=== PATIENT | male | born 1980 | race Two or more races ===

== ENCOUNTER 2016-11-21 11:18 | Inpatient (IN) | payer OTHER ==
[2016-11-21 11:29] VITALS: BMI 24.6
--- NOTE | 2016-11-21 13:35 | HP ---
[id number] 4d 4-Moderate,w/Arms Extend Anxiety: 4-Mod. Anxious/Guarded Agitation: 1-Slight > Activity Paroxysmal Sweats: 1-Minimal Palms Moist Orientation: 1-Uncertain about Date Tacttile Disturbances: 1-Very Mild Itch/Numbness Auditory Disturbances: 2-Mild Harshness/Frighten Visual Disturbances: 2-Mild Sensitivity Headache: 3-Moderate CIWA-Ar Total Score: 20 Admission ROS BHS - HPI Chief Complaint: I want to stop drinking, I drink until I pass out Allergies/Adverse Reactions: Allergies Allergy/AdvReac Type Severity Reaction Status Date / Time Fish Containing Products Allergy Severe Rash Verified 11/21/16 14:03 No Known Drug Allergies Allergy Verified 11/21/16 14:03 History of Present Illness: 35 yo gentleman here for detox from alcohol, states alcohol related black outs, no seizures. Also using heroin and cocaine but on methadone program at [facility] in the city (brought in bottle, was dosed today). Psych history - off meds for nearly a year. Last detox here in August 2016. Exam Limitations: Clinical Condition - Ebola screening Have you traveled outside of the country in the last 21 days: No Have you had contact with anyone from an Ebola affected area: No Have you been sick,other than usual withdrawal symptoms: No Do you have a fever: No - Review of Systems Constitutional: Loss of Appetite, Malaise, Changes in sleep, Weakness EENT: reports: No Symptoms Reported, Dental Problems, Other (loose bridge right upper teeth) Respiratory: reports: Cough Cardiac: reports: Chest Tightness GI: reports: Poor Appetite, Indigestion : reports: No Symptoms Reported Musculoskeletal: reports: Back Pain Integumentary: reports: No Symptoms Reported Neuro: reports: Headache Endocrine: reports: No Symptoms Reported Hematology: reports: No Symptoms Reported Psychiatric: reports: Judgement Intact, Mood/Affect Appropiate, Anxious Other Systems: Reviewed and Negative Patient History - Patient Medical History Hx Anemia: No Hx Asthma: No Hx Chronic Obstructive Pulmonary Disease (COPD): No Hx Cancer: No Hx Cardiac Disorders: No Hx Hypertension: No Hx Hypercholesterolemia: No Hx Pacemaker: No HX Cerebrovascular Accident: No Hx Seizures: No Hx Dementia: No Hx Diabetes: No Hx Gastrointestinal Disorders: No Hx Liver Disease: Yes Hx Genitourinary Disorders: No Hx Sexually Transmitted Disorders: No Hx Renal Disease (ESRD): No Hx Thyroid Disease: No Hx Human Immunodeficiency Virus (HIV): No Hx Hepatitis C: Yes (hx interferon x 7 months ) Hx Depression: Yes Hx Suicide Attempt: No Hx Bipolar Disorder: Yes Hx Schizophrenia: Yes (hospitalized a year ago, hears voices) Other Medical History: back pain - Patient Surgical History Past Surgical History: No Hx Neurologic Surgery: No Hx Cataract Extraction: No Hx Cardiac Surgery: No Hx Lung Surgery: No Hx Breast Surgery: No Hx Breast Biopsy: No Hx Abdominal Surgery: No Hx Appendectomy: No Hx Cholecystectomy: No Hx Genitourinary Surgery: No Hx Section: No Hx Orthopedic Surgery: No Anesthesia Reaction: No - PPD History Previous Implant?: Yes Documented Results: Negative w/proof Date: 08/20/16 PPD to be Administered?: Yes - Reproductive History Patient is a Female of Child Bearing Age (11 -55 yrs old): No (male) - Smoking Cessation Smoking history: Current every day smoker Have you smoked in the past 12 months: Yes Aproximately how many cigarettes per day: 30 Cigars Per Day: 0 Hx Chewing Tobacco Use: No Initiated information on smoking cessation: Yes 'Breaking Loose' booklet given: 11/21/16 (given on floor) - Substance & Tx. History Hx Alcohol Use: Yes Hx Substance Use: Yes Substance Use Type: Alcohol, Cocaine, Heroin Hx Substance Use Treatment: Yes (detox, MMTP) - Substances Abused Cocaine Route: Injection Frequency: Daily Amount used: $30 Age of first use: 12 Date of Last Use: 11/20/16 Heroin Route: Inhalation Frequency: Daily Amount used: 10 bags Age of first use: 10 Date of Last Use: 11/20/16 Alcohol Route: Oral Frequency: Daily Amount used: three six packs of 24oz beer; 2 pint liquor Age of first use: 12 Date of Last Use: 11/21/16 Family Disease History - Family Disease History Family Disease History: Heart Disease: Grandparent (ME - grandmother), Other: Father ( HIV - drug use) Admission Physical Exam BHS - Vital Signs Vital Signs: Vital Signs - 24 hr 11/21/16 11:28 Temperature 97.7 F Pulse Rate 69 Respiratory 20 Rate Blood Pressure 123/69 - Physical General Appearance: Yes: Nourished, Appropriately Dressed, Mild Distress, Anxious HEENTM: Yes: Hearing grossly Normal, Normocephalic, Normal Voice, Other (loose right upper bridge (no redness or swelling)) Respiratory: Yes: Normal Breath Sounds, No Respiratory Distress Neck: Yes: No masses,lesions,Nodules, Supple, Trachea in good position Breast: Yes: Breast Exam Deferred Cardiology: Yes: Regular Rhythm, Regular Rate Abdominal: Yes: Soft Genitourinary: Yes: Within Normal Limits Back: Yes: Normal Inspection Musculoskeletal: Yes: full range of Motion, Gait Steady Extremities: Yes: Normal Inspection, Non-Tender Neurological: Yes: Alert, Normal Mood/Affect, Normal Response Integumentary: Yes: Normal Color, Warm Lymphatic: Yes: Within Normal Limits - Diagnostic (1) Alcohol dependence with uncomplicated withdrawal Current Visit: Yes Status: Chronic (2) Cocaine abuse Current Visit: Yes Status: Chronic (3) Methadone maintenance therapy patient Current Visit: Yes Status: Chronic Comment: 70mg, showed bottle (4) Nicotine dependence, uncomplicated Current Visit: Yes Status: Chronic Qualifiers: Nicotine product type: cigarettes Qualified Code(s): F17.210 - Nicotine dependence, cigarettes, uncomplicated (5) Hepatitis C Current Visit: Yes Status: Chronic Qualifiers: Viral hepatitis chronicity: chronic Hepatic coma status: without hepatic coma Qualified Code(s): B18.2 - Chronic viral hepatitis C (6) Low back pain Current Visit: Yes Status: Chronic Qualifiers: Chronicity: chronic Back pain laterality: unspecified Cleared for Admission [facility] - Detox or Rehab [facility] Level of Care: Medically Managed Detox Regimen/Protocol: Librium [facility] Breath Alcohol Content Breath Alcohol Content: 0.079 Urine Drug Screen - Results Drug Screen Negative: No Urine Drug Screen Results: IKER-Cocaine, OPI-Opiates, MTD-Methadone
[2016-11-21] MEDS ORDERED: MAG HYDROX/AL HYDROX/SIMETH 30 ML UNIT-DOSE CUP PO PRN (13:52)
[2016-11-21] MEDS ORDERED: MENTHOL/PHENOL 1 EACH UD MM PRN (13:52)
[2016-11-21] MEDS ORDERED: chlordiazePOXIDE HCL 25 MG CAPSULE PO PRN (13:52)
[2016-11-21] MEDS ORDERED: P-EPHED 60MG/TRIPROLIDI 2.5MG TABLET PO PRN (13:52)
[2016-11-21] MEDS ORDERED: LOPERAMIDE HCL 2 MG CAPSULE PO PRN (13:52)
[2016-11-21] MEDS ORDERED: chlordiazePOXIDE HCL 25 MG CAPSULE PO ONE (13:52)
[2016-11-21] MEDS ORDERED: MAGNESIUM CITRATE 300 ML BOTTLE PO PRN (13:52)
[2016-11-21] MEDS ORDERED: MAGNESIUM HYDROX 2400MG/30ML ORAL SUSPENSION 30 ML CUP PO PRN (13:52)
[2016-11-21] MEDS: ACETAMINOPHEN 325 MG TABLET (FP) PO PRN ×2 (19:06→22:53)
[2016-11-21] MEDS: guaiFENesin/D-METHORPHAN HB 10 ML UNIT-DOSE CUPS PO PRN (19:06)
[2016-11-21] MEDS: NICOTINE 21 MG/24 HOURS TOPICAL PATCH TD SCH (19:09)
[2016-11-21] MEDS: chlordiazePOXIDE HCL 25 MG CAPSULE PO SCH ×2 (19:23→22:50)
[2016-11-21] MEDS: THIAMINE HCL 100 MG TABLET (FP) PO SCH (22:50)
[2016-11-21] MEDS: diphenhydrAMINE HCL 50 MG CAPSULE PO PRN (22:54)
[2016-11-22] MEDS ORDERED: METHADONE HCL 40 MG DISPERSABLE TABLET ONE (04:43)
[2016-11-22] MEDS ORDERED: METHADONE HCL 10 MG TABLET ONE (04:43)
[2016-11-22] MEDS: chlordiazePOXIDE HCL 25 MG CAPSULE PO SCH ×4 (05:58→22:07)
[2016-11-22] MEDS ORDERED: METHADONE 40 MG, METHADONE 30 MG PO ONE (06:00)
[2016-11-22] MEDS ORDERED: METHADONE HCL 10 MG TABLET PO ONE (06:00)
[2016-11-22] MEDS: guaiFENesin/D-METHORPHAN HB 10 ML UNIT-DOSE CUPS PO PRN ×2 (06:00→17:42)
[2016-11-22] MEDS: PRENATAL VITAMINS W/ FOLIC ACID TABLET (FP) PO SCH (10:14)
[2016-11-22] MEDS: NICOTINE 21 MG/24 HOURS TOPICAL PATCH TD SCH (10:14)
[2016-11-22] MEDS: NICOTINE POLACRILEX 4 MG GUM BUC PRN ×3 (10:15→22:54)
[2016-11-22 10:25] LABS: MCH 29.8 pg (25.7-33.7); MCHC 33.6 g/dl (32.0-35.9); MEAN CELL VOLUME 88.8 fl (80-96); MEAN PLT VOLUME 8.8 fl (7.5-11.1); PLATELET COUNT 156 K/MM3 (134-434); WHITE BLOOD COUNT 3.6 K/mm3 (4.0-10.0)
[2016-11-22 10:44] LABS: ALBUMIN 3.5 g/dl (3.4-5.0); ANION GAP 3 (8-16); CALCIUM 8.7 mg/dL (8.5-10.1); CO2 29 mmol/L (21-32); GLUCOSE,RANDOM 108 mg/dL (74-106); SGOT/AST 39 U/L (15-37)
[2016-11-22 10:47] LABS: ALK PHOS 89 U/L (45-117); BILIRUBIN,TOTAL 0.7 mg/dL (0.2-1.0); CREATININE 0.9 mg/dL (0.7-1.3); SGPT/ALT 44 U/L (12-78); TOT PROT 7.3 g/dl (6.4-8.2)
[2016-11-22] MEDS: hydrOXYzine PAMOATE 50 MG CAPSULE (FP) PO PRN ×2 (11:55→16:55)
--- NOTE | 2016-11-22 16:52 | PN ---
S CIWA - CIWA Score Nausea/Vomitin Muscle Tremors: 4-Moderate,w/Arms Extend Anxiety: 4-Mod. Anxious/Guarded Agitation: 4-Moderately Restless Paroxysmal Sweats: No Perspiration Orientation: 0-Oriented Tacttile Disturbances: 1-Very Mild Itch/Numbness Auditory Disturbances: 0-None Visual Disturbances: 0-None Headache: 3-Moderate CIWA-Ar Total Score: 19 BHS Progress Note (SOAP) Subjective: Anxious, restless, interrupted sleep, sweating, tremor; c/o coughing up moderate amount of green phlegm and that his chest hurts whenever he coughs. Denies any history of asthma but reports smoking more than a pack of cigarettes/ day and started smoking at age 11 Objective: 11/22/16 16:49 Last Vital Signs Temp Pulse Resp BP Pulse Ox 97.4 F L 73 20 116/78 11/22/16 14:09 11/22/16 14:09 11/22/16 14:09 11/22/16 14:09 Laboratory Tests 11/22/16 11/22/16 11/22/16 08:00 08:00 08:00 WBC 3.6 L RBC 4.68 Hgb 14.0 Hct 41.6 MCV 88.8 MCHC 33.6 RDW 13.0 Plt Count 156 MPV 8.8 Sodium 133 L Potassium 3.9 Chloride 101 Carbon Dioxide 29 Anion Gap 3 L BUN 8 D Creatinine 0.9 Creat Clearance w eGFR > 60 Random Glucose 108 H Calcium 8.7 Total Bilirubin 0.7 AST 39 H ALT 44 Alkaline Phosphatase 89 Total Protein 7.3 Albumin 3.5 RPR Titer Nonreactive Labs noted: serum glucose 108, Na 133 PE: Resp: lungs with mild scattered inspiratory and expiratory wheezing both anteriorly and posteriorly CV: RRR, S1S2+, apical rate 84 bpm Assessment: 11/22/16 16:50 Withdrawal symptoms Acute bronchitis Plan: Continue detox Acute bronchitis: Z Venkat, albuterol nebulizer x 1 dose, albuterol mdi prn, chest xray in AM, encouraged to drink lots of water to liquify and loosen secretions, continue cough syrup prn
[2016-11-22] MEDS ORDERED: ALBUTEROL SO4 0.083% IH SOL 2.5 MG/3 ML VIAL.NEB. NEB ONE (16:54)
[2016-11-22] MEDS ORDERED: ALBUTEROL SO4 6.7 GM HFA INHALER IH PRN (16:54)
[2016-11-22] MEDS ORDERED: AZITHROMYCIN 250 MG TABLET (FP) PO STA (16:57)
[2016-11-22] MEDS: ACETAMINOPHEN 325 MG TABLET (FP) PO PRN (17:41)
[2016-11-22] MEDS: THIAMINE HCL 100 MG TABLET (FP) PO SCH (22:07)
[2016-11-22] MEDS: diphenhydrAMINE HCL 50 MG CAPSULE PO PRN (22:08)
[2016-11-23] MEDS: guaiFENesin/D-METHORPHAN HB 10 ML UNIT-DOSE CUPS PO PRN ×3 (05:45→22:08)
[2016-11-23] MEDS: chlordiazePOXIDE HCL 25 MG CAPSULE PO SCH ×2 (05:45→10:32)
[2016-11-23] MEDS: NICOTINE POLACRILEX 4 MG GUM BUC PRN ×5 (05:46→22:08)
[2016-11-23] MEDS: IBUPROFEN 400 MG TABLET (FP) PO PRN (05:47)
[2016-11-23] MEDS ORDERED: METHADONE HCL 10 MG TABLET PO ONE (09:22)
[2016-11-23] MEDS ORDERED: METHADONE 40 MG, METHADONE 30 MG PO ONE (09:35)
[2016-11-23] MEDS ORDERED: METHADONE HCL 10 MG TABLET ONE (10:00)
[2016-11-23] MEDS ORDERED: METHADONE HCL 40 MG DISPERSABLE TABLET ONE (10:00)
[2016-11-23] MEDS: PRENATAL VITAMINS W/ FOLIC ACID TABLET (FP) PO SCH (10:31)
[2016-11-23] MEDS: AZITHROMYCIN 250 MG TABLET (FP) PO SCH (10:32)
[2016-11-23] MEDS: NICOTINE 21 MG/24 HOURS TOPICAL PATCH TD SCH (10:34)
[2016-11-23] MEDS: ACETAMINOPHEN 325 MG TABLET (FP) PO PRN ×2 (10:36→17:21)
--- NOTE | 2016-11-23 11:10 | PN ---
[facility] CIWA - CIWA Score Nausea/Vomitin-Mild Nausea/No Vomiting Muscle Tremors: 4-Moderate,w/Arms Extend Anxiety: 4-Mod. Anxious/Guarded Agitation: 4-Moderately Restless Paroxysmal Sweats: 3 Orientation: 0-Oriented Tacttile Disturbances: 1-Very Mild Itch/Numbness Auditory Disturbances: 0-None Visual Disturbances: 0-None Headache: 0-None Present CIWA-Ar Total Score: 17 BHS Progress Note (SOAP) Subjective: ANXIETY,TREMORS,SWEATING,INTERRUPTED SLEEP,RESTLESS. Objective: 11/23/16 11:10 Vital Signs - 8 hr 11/23/16 11/23/16 11/23/16 03:19 06:18 10:18 Temperature 96.7 F L 96.4 F L Pulse Rate 65 82 Respiratory 18 16 20 Rate Blood Pressure 119/82 116/77 Laboratory Tests 11/22/16 11/22/16 11/22/16 08:00 08:00 08:00 WBC 3.6 L RBC 4.68 Hgb 14.0 Hct 41.6 MCV 88.8 MCHC 33.6 RDW 13.0 Plt Count 156 MPV 8.8 Sodium 133 L Potassium 3.9 Chloride 101 Carbon Dioxide 29 Anion Gap 3 L BUN 8 D Creatinine 0.9 Creat Clearance w eGFR > 60 Random Glucose 108 H Calcium 8.7 Total Bilirubin 0.7 AST 39 H ALT 44 Alkaline Phosphatase 89 Total Protein 7.3 Albumin 3.5 RPR Titer Nonreactive LABS NOTED Assessment: 11/23/16 11:10 WITHDRAWAL SX. Plan: CONTINUE DETOX
[2016-11-23 13:58] LABS: URINE APPEARANCE CLEAR; URINE BILIRUBIN NEGATIVE (NEGATIVE); URINE BLOOD NEGATIVE (NEGATIVE); URINE COLOR LTYELLOW; URINE GLUCOSE (UA) NEGATIVE (NEGATIVE); URINE KETONE NEGATIVE (NEGATIVE); URINE LEUK ESTERASE NEGATIVE (NEGATIVE); URINE NITRITE NEGATIVE (NEGATIVE); URINE PROTEIN NEGATIVE (NEGATIVE); URINE UROBILINOGEN NEGATIVE E.U./dl (0.2-1.0)
[2016-11-23] MEDS ORDERED: chlordiazePOXIDE HCL 25 MG CAPSULE PO ONE (14:30)
--- NOTE | 2016-11-23 14:40 | CONSULT ---
[facility] Psychiatric Consult - Data Date of interview: 11/23/16 Admission source: [facility] Identifying data: This is one of multiple admissions to [facility] for this 35 y/ o male seeking detox treatment for heroin,alcohol,benzodiazepine and cocaine dependence.He is ,a father of one,domiciled,unemployed and supported on SSI benefits. Substance Abuse History: - Smoking Cessation. Smoking history: Current every day smoker. Have you smoked in the past 12 months: Yes. Aproximately how many cigarettes per day: 30. Cigars Per Day: 0. Hx Chewing Tobacco Use: No. Initiated information on smoking cessation: Yes. 'Breaking Loose' booklet given : 11/21/16 (given on floor). - Substance & Tx. History. Hx Alcohol Use: Yes. Hx Substance Use: Yes. Substance Use Type: Alcohol, Cocaine, Heroin. Hx Substance Use Treatment: Yes (detox, MMTP). - Substances Abused. Cocaine. Route: Injection. Frequency: Daily. Amount used: $30. Age of first use: 12. Date of Last Use: 11/20/16. Heroin. Route: Inhalation. Frequency: Daily. Amount used: 10 bags. Age of first use: 10. Date of Last Use: 11/20/16. Alcohol. Route: Oral. Frequency: Daily. Amount used: three six packs of 24oz beer; 2 pint liquor. Age of first use: 12. Date of Last Use: 11/21/16. Confirmed by patient. Medical History: Significant for hepatitis C. Psychiatric History: Patient remains a poor and unreliable historian.Diagnosed with Schizoaffective Disorder (1997).History of one psychiatric hospitalization ([facility] in 2005).Mr Rollins has not taken psychotropic medications since his discharge from [facility] in 08/2016.Except for methadone maintenance at [facility] (70 mg/day),the patient has no contact with psychiatrists.He now requests to get back on his past medications (gabapentin, and risperdal).Mr Rollins declares his intent to abstain from trazodone. " It makes me feel so weird in the morning when I was on it." Past history of suicide attempts via overdose with medications. Physical/Sexual Abuse/Trauma History: Patient denies. Additional Comment: Urine Drug Screen Results: IKER-Cocaine, OPI-Opiates, MTD- Methadone.Noted. Mental Status Exam - Mental Status Exam Alert and Oriented to: Time, Place, Person Cognitive Function: Good Patient Appearance: Well Groomed Mood: Nervous, Anxious, Apprehensive Affect: Mood Congruent Patient Behavior: Fatigued, Talkative, Cooperative Speech Pattern: Clear, Appropriate Voice Loudness: Normal Thought Process: Goal Oriented Thought Disorder: Not Present Hallucinations: Denies Suicidal Ideation: Denies Homicidal Ideation: Denies Insight/Judgement: Poor Sleep: Poorly, Difficulty falling asleep Appetite: Good Muscle strength/Tone: Normal Gait/Station: Normal Psychiatric Findings - Problem List ([place] 1, 2,3) (1) Alcohol dependence with uncomplicated withdrawal Status: Acute (2) Nicotine dependence, uncomplicated Status: Acute Qualifiers: Nicotine product type: cigarettes Qualified Code(s): F17.210 - Nicotine dependence, cigarettes, uncomplicated (3) Opioid dependence on agonist therapy Status: Acute (4) Cocaine dependence Status: Acute (5) Schizoaffective disorder Status: Chronic Qualifiers: Schizoaffective disorder type: bipolar Qualified Code(s): F25.0 - Schizoaffective disorder, bipolar type (6) Substance induced mood disorder Status: Acute (7) Hepatitis C Status: Chronic Qualifiers: Viral hepatitis chronicity: chronic Hepatic coma status: without hepatic coma Qualified Code(s): B18.2 - Chronic viral hepatitis C (8) Low back pain Status: Chronic Qualifiers: Chronicity: chronic Back pain laterality: unspecified - Initial Treatment Plan Initial Treatment Plan: Psychoeducation.Detoxification.Medications :gabapentin 300 mg po tid + risperdal 1 mg po bid.Insomnia is addressed with 100 mg of benadryl at bedtime.Side effects/benefits discussed with patient.He agrees with this plan.Observation.
[2016-11-23] MEDS: chlordiazePOXIDE 5 MG CAPSULE PO SCH ×2 (17:19→22:06)
[2016-11-23] MEDS: GABAPENTIN 300 MG CAPSULE (FP) PO SCH (22:06)
[2016-11-23] MEDS: risperiDONE 1 MG TABLET (FP) PO SCH (22:06)
[2016-11-23] MEDS: THIAMINE HCL 100 MG TABLET (FP) PO SCH (22:06)
[2016-11-24] MEDS: chlordiazePOXIDE 5 MG CAPSULE PO SCH ×2 (05:55→10:25)
[2016-11-24] MEDS ORDERED: METHADONE HCL 40 MG DISPERSABLE TABLET PO SCH (06:00)
[2016-11-24] MEDS ORDERED: METHADONE HCL 40 MG DISPERSABLE TABLET ONE (06:24)
[2016-11-24] MEDS ORDERED: METHADONE HCL 10 MG TABLET ONE (06:24)
[2016-11-24] MEDS: METHADONE 40 MG, METHADONE 30 MG PO SCH (06:26)
[2016-11-24] MEDS: GABAPENTIN 300 MG CAPSULE (FP) PO SCH ×3 (06:27→22:11)
[2016-11-24] MEDS: IBUPROFEN 400 MG TABLET (FP) PO PRN (06:28)
[2016-11-24] MEDS: guaiFENesin/D-METHORPHAN HB 10 ML UNIT-DOSE CUPS PO PRN ×2 (06:29→17:45)
[2016-11-24] MEDS: AZITHROMYCIN 250 MG TABLET (FP) PO SCH (10:25)
[2016-11-24] MEDS: risperiDONE 1 MG TABLET (FP) PO SCH ×2 (10:25→22:11)
[2016-11-24] MEDS: PRENATAL VITAMINS W/ FOLIC ACID TABLET (FP) PO SCH (10:25)
[2016-11-24] MEDS: NICOTINE 21 MG/24 HOURS TOPICAL PATCH TD SCH (10:26)
--- NOTE | 2016-11-24 11:36 | PN ---
S Progress Note (SOAP) Subjective: ANXIETY, SWEATS, IRRITABILITY,FATIGUE,INTERMITTENT SLEEP Objective: 11/24/16 11:36 Vital Signs Temperature 97.0 F L 11/24/16 09:49 Pulse Rate 97 H 11/24/16 09:49 Respiratory Rate 20 11/24/16 09:49 Blood Pressure 121/75 11/24/16 09:49 O2 Sat by Pulse Oximetry (%) Laboratory Last Values WBC 3.6 K/mm3 (4.0-10.0) L 11/22/16 08:00 RBC 4.68 M/mm3 (4.00-5.60) 11/22/16 08:00 Hgb 14.0 GM/dL (11.7-16.9) 11/22/16 08:00 Hct 41.6 % (35.4-49) 11/22/16 08:00 MCV 88.8 fl (80-96) 11/22/16 08:00 MCHC 33.6 g/dl (32.0-35.9) 11/22/16 08:00 RDW 13.0 % (11.9-15.9) 11/22/16 08:00 Plt Count 156 K/MM3 (134-434) 11/22/16 08:00 MPV 8.8 fl (7.5-11.1) 11/22/16 08:00 Sodium 133 mmol/L (136-145) L 11/22/16 08:00 Potassium 3.9 mmol/L (3.5-5.1) 11/22/16 08:00 Chloride 101 mmol/L (98-107) 11/22/16 08:00 Carbon Dioxide 29 mmol/L (21-32) 11/22/16 08:00 Anion Gap 3 (8-16) L 11/22/16 08:00 BUN 8 mg/dL (7-18) D 11/22/16 08:00 Creatinine 0.9 mg/dL (0.7-1.3) 11/22/16 08:00 Creat Clearance w eGFR > 60 (>60) 11/22/16 08:00 Random Glucose 108 mg/dL (74-106) H 11/22/16 08:00 Calcium 8.7 mg/dL (8.5-10.1) 11/22/16 08:00 Total Bilirubin 0.7 mg/dL (0.2-1.0) 11/22/16 08:00 AST 39 U/L (15-37) H 11/22/16 08:00 ALT 44 U/L (12-78) 11/22/16 08:00 Alkaline Phosphatase 89 U/L (45-117) 11/22/16 08:00 Total Protein 7.3 g/dl (6.4-8.2) 11/22/16 08:00 Albumin 3.5 g/dl (3.4-5.0) 11/22/16 08:00 Urine Color Ltyellow 11/23/16 10:20 Urine Appearance Clear 11/23/16 10:20 Urine pH 6.0 (5.0-8.0) 11/23/16 10:20 Ur Specific [place] 1.015 (1.001-1.035) 11/23/16 10:20 Urine Protein Negative (NEGATIVE) 11/23/16 10:20 Urine Glucose (UA) Negative (NEGATIVE) 11/23/16 10:20 Urine Ketones Negative (NEGATIVE) 11/23/16 10:20 Urine Blood Negative (NEGATIVE) 11/23/16 10:20 Urine Nitrite Negative (NEGATIVE) 11/23/16 10:20 Urine Bilirubin Negative (NEGATIVE) 11/23/16 10:20 Urine Urobilinogen Negative E.U./dl (0.2-1.0) 11/23/16 10:20 Ur Leukocyte Esterase Negative (NEGATIVE) 11/23/16 10:20 RPR Titer Nonreactive (NONREACTIVE) 11/22/16 08:00 Assessment: 11/24/16 11:36 WITHDRAWAL SX Plan: CONTINUE DETOX
[2016-11-24] MEDS: hydrOXYzine PAMOATE 50 MG CAPSULE (FP) PO PRN (11:57)
[2016-11-24] MEDS: NICOTINE POLACRILEX 4 MG GUM BUC PRN ×2 (12:00→14:31)
[2016-11-24] MEDS: chlordiazePOXIDE HCL 10 MG CAPSULE PO SCH ×2 (17:43→22:11)
[2016-11-24] MEDS: ACETAMINOPHEN 325 MG TABLET (FP) PO PRN (17:45)
[2016-11-24] MEDS: THIAMINE HCL 100 MG TABLET (FP) PO SCH (22:10)
[2016-11-24] MEDS: diphenhydrAMINE HCL 50 MG CAPSULE PO PRN (22:11)
[2016-11-25] MEDS ORDERED: METHADONE HCL 40 MG DISPERSABLE TABLET ONE (04:23)
[2016-11-25] MEDS ORDERED: METHADONE HCL 10 MG TABLET ONE (04:23)
[2016-11-25] MEDS: IBUPROFEN 400 MG TABLET (FP) PO PRN (05:56)
[2016-11-25] MEDS: chlordiazePOXIDE HCL 10 MG CAPSULE PO SCH ×2 (05:56→10:36)
[2016-11-25] MEDS: METHADONE 40 MG, METHADONE 30 MG PO SCH (05:56)
[2016-11-25] MEDS: GABAPENTIN 300 MG CAPSULE (FP) PO SCH (05:56)
[2016-11-25] MEDS: guaiFENesin/D-METHORPHAN HB 10 ML UNIT-DOSE CUPS PO PRN (06:04)
[2016-11-25 06:32] VITALS: BP 109/76; PULSE 96; TEMP 97.1
--- NOTE | 2016-11-25 09:40 | DS ---
[facility] Detox Discharge Summary Admission Date: 11/21/16 Discharge Date: 11/25/16 - History Present History: Alcohol Dependence, Cocaine Dependence, MMTP Additional Comments: NONE Pertinent Past History: HEP C LOW BACK PAIN SCHIZOAFFECTIVE DISORDER SUBSTANCE- INDUCED MOOD DISORDER - Physical Exam Results Vital Signs: Vital Signs Temperature 97.1 F L 11/25/16 06:32 Pulse Rate 96 H 11/25/16 06:32 Respiratory Rate 16 11/25/16 06:32 Blood Pressure 109/76 11/25/16 06:32 O2 Sat by Pulse Oximetry (%) Pertinent Admission Physical Exam Findings: WITHDRAWAL SX - Treatment Hospital Course: Detox Protocol Followed, Detoxed Safely, Responded well, Discharged Condition Good - Medication Discharge Medications: Ambulatory Orders Gabapentin [Neurontin -] 300 mg PO TID #60 capsule 11/24/16 Risperidone [Risperdal] 2 mg PO HS #30 tablet 11/24/16 - Diagnosis (1) Alcohol dependence with uncomplicated withdrawal Current Visit: Yes Status: Acute (2) Nicotine dependence, uncomplicated Current Visit: Yes Status: Chronic Qualifiers: Nicotine product type: cigarettes Qualified Code(s): F17.210 - Nicotine dependence, cigarettes, uncomplicated (3) Hepatitis C Current Visit: Yes Status: Chronic Qualifiers: Viral hepatitis chronicity: chronic Hepatic coma status: without hepatic coma Qualified Code(s): B18.2 - Chronic viral hepatitis C (4) Low back pain Current Visit: Yes Status: Chronic Qualifiers: Chronicity: chronic Back pain laterality: unspecified (5) Methadone maintenance therapy patient Current Visit: Yes Status: Chronic - AMA Did Patient Leave Against Medical Advice: No
--- NOTE | 2016-11-25 09:42 | EKG ---
Test Reason : Blood Pressure : / mmHG Vent. Rate : 067 BPM Atrial Rate : 067 BPM P-R Int : 134 ms QRS Dur : 090 ms QT Int : 426 ms P-R-T Axes : 047 013 037 degrees QTc Int : 450 ms NORMAL SINUS RHYTHM NORMAL ECG Confirmed by CEE ESPINOZA MD ([id number]) on 11/25/2016 9:42:26 AM Referred By: Confirmed By:CEE ESPINOZA MD
[2016-11-25] MEDS: PRENATAL VITAMINS W/ FOLIC ACID TABLET (FP) PO SCH (10:34)
[2016-11-25] MEDS: AZITHROMYCIN 250 MG TABLET (FP) PO SCH (10:34)
[2016-11-25] MEDS: NICOTINE 21 MG/24 HOURS TOPICAL PATCH TD SCH (10:37)
[2016-11-25] MEDS: risperiDONE 1 MG TABLET (FP) PO SCH (10:37)
[2016-11-25] MEDS: NICOTINE POLACRILEX 4 MG GUM BUC PRN (10:40)
== END 2016-11-25 12:23 | disposition other institution (70) | DRG 773 ==
LOC: YASAS 11:18 → Y3N 16:36
PROVIDERS: ADMIT Internal Medicine; ATTEND Internal Medicine
PROC: HZ2ZZZZ Detoxification Services for Substance Abuse Treatment (ICD-10-PCS; principal; 2016-11-21)
DX: F10.230 Alcohol dependence with withdrawal, uncomplicated (principal); F11.20 Opioid dependence, uncomplicated; F14.20 Cocaine dependence, uncomplicated; F17.210 Nicotine dependence, cigarettes, uncomplicated; F25.9 Schizoaffective disorder, unspecified; F19.24 Other psychoactive substance dependence with psychoactive substance-induced mood disorder; B18.2 Chronic viral hepatitis C; M54.5 Low back pain; G89.29 Other chronic pain; K76.9 Liver disease, unspecified; J20.9 Acute bronchitis, unspecified
CPT/HCPCS: 36415; 71020-TC; 80053; 81003; 85027; 86593; 93005; 93010; 94640; J2794

== ENCOUNTER 2016-11-25 12:32 | Inpatient (IN) | payer OTHER ==
--- NOTE | 2016-11-25 13:01 | HP ---
Psychiatrist Admission - Data Date of interview: 11/25/16 Admission source: [facility] Identifying data: This is the first [facility] admission for this 35 years old male, father of 8 years old daughter , unemployed on SSI, homeless living in a family half-way Medical History: Significant for hepatitis C and Back pain Psychiatric History: Reports history of Schizoaffective Disorder since 1997 and has had several psychiatric admissions including to [facility] in 2005. He does not recall place and date of most recent admission. Reports that he used to see a psychiatrist at [facility] and he was prescribed Gabapentin 400 mg po BID, Zyprexa 20 mg po HS, Risperdal 3 mg po BID and Trazadone 150 mg po HS. Reports not currently receiving psychiatric outpatient services and could not recall when last he took any medication. He saw Dr Cohen while in detox and he was prescribed Risperdal 1 mg po BID, Gabapentin 300 mg po TID and Benadryl 100 mg po HS. Denies previous suicidal attempt Physical/Sexual Abuse/Trauma History: Denies Additional Comment: Reports history of multiple arrests including 6-7 felony convictions. Reports being on probation till Allergies/Adverse Reactions: Allergies Allergy/AdvReac Type Severity Reaction Status Date / Time Fish Containing Products Allergy Severe Rash Verified 11/21/16 14:03 No Known Drug Allergies Allergy Verified 11/21/16 14:03 Date of last physical exam: 11/21/16 Concur with the findings of this exam: Yes - Substance Abuse/Tx History Hx Alcohol Use: Yes Hx Substance Use: Yes Substance Use Type: Alcohol (Started drinking alcohol at age 10, consumes 2 pints of liquor & 3x 6pk(24 oz) daily. Last drink on 11/21/16), Cocaine (Started using cocaine at age 12, consumes $30 worth daily. Last used on 11/20/16), Heroin (Started using heroin at age 12, consumes 10 bags daily. Last used on 11/20/16) Hx Substance Use Treatment: Yes ([address] previous [address] detox [address] [facility]) - Admission Criteria Previous failed treatment: No Poor recovery environment: Yes Comorbidities: Yes Lacks judgement: Yes Mental Status Exam - Mental Status Exam Alert and Oriented to: Time (Today is Sunday December 04, 2016), Place, Person Cognitive Function: Fair Patient Appearance: Well Groomed Mood: Depressed, Irritable Affect: Appropriate Patient Behavior: Sedated, Cooperative (superficially) Speech Pattern: Clear Voice Loudness: Normal Thought Process: Intact Thought Disorder: Not Present Hallucinations: Denies Suicidal Ideation: Denies Homicidal Ideation: Denies Insight/Judgement: Fair Sleep: Poorly Appetite: Good Muscle strength/Tone: Normal Gait/Station: Normal Psychiatric Findings - Problem List ([place] 1, 2,3) (1) Alcohol dependence with uncomplicated withdrawal Current Visit: No Status: Acute (2) Opioid dependence Current Visit: No Status: Acute (3) Cocaine dependence Current Visit: No Status: Acute (4) Opioid dependence on agonist therapy Current Visit: No Status: Acute (5) Nicotine dependence, uncomplicated Current Visit: No Status: Chronic Qualifiers: Nicotine product type: cigarettes Qualified Code(s): F17.210 - Nicotine dependence, cigarettes, uncomplicated (6) Schizoaffective disorder Current Visit: No Status: Chronic Qualifiers: Schizoaffective disorder type: bipolar Qualified Code(s): F25.0 - Schizoaffective disorder, bipolar type (7) Hepatitis C Current Visit: No Status: Chronic Qualifiers: Viral hepatitis chronicity: chronic Hepatic coma status: without hepatic coma Qualified Code(s): B18.2 - Chronic viral hepatitis C (8) Low back pain Current Visit: No Status: Chronic Qualifiers: Chronicity: chronic Back pain laterality: unspecified - Initial Treatment Plan Initial Treatment Plan: 1) Continue Risperdal 1 mg po BID, Gabapentin 300 mg po TID. 2) Start Trazadone 100 mg po HS. 3) Monitor progress
[2016-11-25 14:08] VITALS: BMI 24.6
[2016-11-25] MEDS ORDERED: MENTHOL/PHENOL 1 EACH UD MM PRN (15:48)
[2016-11-25] MEDS ORDERED: MAG HYDROX/AL HYDROX/SIMETH 30 ML UNIT-DOSE CUP PO PRN (15:48)
[2016-11-25] MEDS ORDERED: P-EPHED 60MG/TRIPROLIDI 2.5MG TABLET PO PRN (15:48)
[2016-11-25] MEDS ORDERED: LOPERAMIDE HCL 2 MG CAPSULE PO PRN (15:48)
[2016-11-25] MEDS ORDERED: MAGNESIUM CITRATE 300 ML BOTTLE PO PRN (15:48)
--- NOTE | 2016-11-25 16:20 | HP ---
[facility] Assess/Revision - Admission History Admitted to Rehab from: [facility] Date of Admission to Rehab: 11/25/16 - Vital signs Vital Signs: Vital Signs Period Temp Pulse Resp BP Sys/Valentino Pulse Ox Last 24 Hr 97.9 F 76 20 112/69 - Findings Detox History & Physical reviewed: Yes Concur with findings: Yes Comments/Additional Findings: transferred from detox to rehab admission as per protocol
[2016-11-25] MEDS: risperiDONE 1 MG TABLET (FP) PO SCH (21:44)
[2016-11-25] MEDS: GABAPENTIN 300 MG CAPSULE (FP) PO SCH (21:44)
[2016-11-25] MEDS: THIAMINE HCL 100 MG TABLET (FP) PO SCH (21:44)
[2016-11-25] MEDS: traZODone HCL 100 MG TABLET (FP) PO SCH (21:44)
[2016-11-25] MEDS: diphenhydrAMINE HCL 50 MG CAPSULE PO PRN (21:45)
[2016-11-26] MEDS ORDERED: METHADONE HCL 40 MG DISPERSABLE TABLET PO SCH (06:15)
[2016-11-26] MEDS ORDERED: METHADONE HCL 10 MG TABLET ONE (06:16)
[2016-11-26] MEDS ORDERED: METHADONE HCL 40 MG DISPERSABLE TABLET ONE (06:17)
[2016-11-26] MEDS: METHADONE 40 MG, METHADONE 30 MG PO SCH (06:25)
[2016-11-26] MEDS: GABAPENTIN 300 MG CAPSULE (FP) PO SCH ×3 (06:25→21:58)
[2016-11-26] MEDS: NICOTINE POLACRILEX 4 MG GUM BUC PRN ×2 (06:30→22:00)
[2016-11-26] MEDS: MAGNESIUM HYDROX 2400MG/30ML ORAL SUSPENSION 30 ML CUP PO PRN (06:30)
[2016-11-26] MEDS: AZITHROMYCIN 250 MG TABLET (FP) PO SCH (10:21)
[2016-11-26] MEDS: PRENATAL VITAMINS W/ FOLIC ACID TABLET (FP) PO SCH (10:21)
[2016-11-26] MEDS: NICOTINE 21 MG/24 HOURS TOPICAL PATCH TD SCH (10:21)
[2016-11-26] MEDS: risperiDONE 1 MG TABLET (FP) PO SCH ×2 (10:21→21:57)
[2016-11-26] MEDS: guaiFENesin/D-METHORPHAN HB 10 ML UNIT-DOSE CUPS PO PRN ×2 (10:23→21:59)
[2016-11-26] MEDS: ACETAMINOPHEN 325 MG TABLET (FP) PO PRN (10:23)
[2016-11-26] MEDS ORDERED: INFLUENZA VACCINE 45 MCG/0.5 ML (MDV 16-17) IM ONE (12:00)
[2016-11-26] MEDS: traZODone HCL 100 MG TABLET (FP) PO SCH (21:57)
[2016-11-26] MEDS: THIAMINE HCL 100 MG TABLET (FP) PO SCH (21:57)
[2016-11-26] MEDS: IBUPROFEN 400 MG TABLET (FP) PO PRN (21:59)
[2016-11-27] MEDS ORDERED: METHADONE HCL 10 MG TABLET ONE (04:06)
[2016-11-27] MEDS ORDERED: METHADONE HCL 40 MG DISPERSABLE TABLET ONE (04:06)
[2016-11-27] MEDS: GABAPENTIN 300 MG CAPSULE (FP) PO SCH ×3 (06:19→21:21)
[2016-11-27] MEDS: METHADONE 40 MG, METHADONE 30 MG PO SCH (06:19)
[2016-11-27] MEDS: NICOTINE POLACRILEX 4 MG GUM BUC PRN ×2 (06:22→14:43)
[2016-11-27] MEDS: guaiFENesin/D-METHORPHAN HB 10 ML UNIT-DOSE CUPS PO PRN ×3 (06:22→21:21)
--- NOTE | 2016-11-27 09:47 | PN ---
Psychiatric Progress Note Vital Signs: Vital Signs Period Temp Pulse Resp BP Sys/Valentino Pulse Ox Last 24 Hr 97.3 F 76 18-20 118/68 Date of Session: 11/27/16 Chief Complaint:: Drowsiness HPI: Patient addressing Alcohol, Opoid and Cocaine Dependence comorbid with Nicotine Dependence and Schizoaffective Disorder ROS: Hep C, LBP Current Medications: Active Medications Generic Name Dose Route Start Last Admin Trade Name Freq PRN Reason Stop Dose Admin Acetaminophen 650 mg 11/25/16 15:48 11/26/16 10:23 Tylenol - PO 650 mg Q4H PRN Administration FEVER OR PAIN Al Hydroxide/Mg Hydroxide 30 ml 11/25/16 15:48 Mylanta Oral Suspension - PO Q6H PRN DYSPEPSIA Azithromycin 250 mg 11/26/16 10:00 11/26/16 10:21 Zithromax - PO 250 mg DAILY FARHAN Administration Diphenhydramine HCl 50 mg 11/25/16 15:48 11/25/16 21:45 Benadryl - PO 50 mg HSMR1 PRN Administration FOR ITCHING Eucalyptus/Menthol/Phenol/Sorbitol 1 each 11/25/16 15:48 Cepastat Lozenge - MM Q4H PRN SORE THROAT Gabapentin 300 mg 11/25/16 22:00 11/27/16 06:19 Neurontin - PO 300 mg TID FARHAN Administration Guaifenesin 10 ml 11/25/16 15:48 11/27/16 06:22 Robitussin Dm - PO 10 ml Q6H PRN Administration COUGH Ibuprofen 400 mg 11/25/16 15:48 11/26/16 21:59 Motrin - PO 400 mg Q6H PRN Administration PAIN Loperamide HCl 4 mg 11/25/16 15:48 Imodium - PO Q6H PRN DIARRHEA Magnesium Citrate 300 ml 11/25/16 15:48 Citroma - PO 11/27/16 15:49 Q48H PRN CONSTIPATION Magnesium Hydroxide 30 ml 11/25/16 15:48 11/26/16 06:30 Milk Of Magnesia - PO 30 ml DAILY PRN Administration CONSTIPATION Methadone HCl 40 mg/ Methadone 70 mg 11/26/16 06:15 11/27/16 06:19 HCl 30 mg PO 70 mg DAILY@0600 [facility] Administration Nicotine 21 mg 11/26/16 10:00 11/26/16 10:21 Nicoderm Patch - TD 21 mg DAILY FARHAN Administration Nicotine Polacrilex 4 mg 11/25/16 15:48 11/27/16 06:22 Nicorette Gum - BUC 4 mg Q2H PRN Administration NICOTINE REPLACEMENT RX Multivit/Folic Acid/Iron 1 tab 11/26/16 10:00 11/26/16 10:21 Vitamins (Sjr) - PO 1 tab DAILY FARHAN Administration Pseudoephedrine/Triprolidine 1 combo 11/25/16 15:48 Actifed - PO TID PRN NASAL CONGESTION Risperidone 1 mg 11/25/16 22:00 11/26/16 21:57 Risperdal - PO 1 mg BID FARHAN Administration Thiamine HCl 100 mg 11/25/16 22:00 11/26/16 21:57 Vitamin B1 - PO 100 mg HS FARHAN Administration Trazodone HCl 100 mg 11/25/16 22:00 11/26/16 21:57 Desyrel - PO 100 mg HS FARHAN Administration Medication(s) Change(s): Decrease Trazadone dosage to 50 mg po HS Current Side Effect: No (Drowsiness) Lab tests ordered: Yes Lab tests reviewed: Yes Provider note:: Patient reports feeling drowsy, sleepy interfering with his participation in group activities. Requests to cut down on Trazadone dosage Total face to face time:: 25 Mental Status Exam - Mental Status Exam Alert and Oriented to: Time, Place, Person Cognitive Function: Fair Patient Appearance: Well Groomed Mood: Hopeful, Euthymic Affect: Appropriate Patient Behavior: Asleep (drowsy), Cooperative Speech Pattern: Clear Voice Loudness: Normal Thought Process: Intact Thought Disorder: Not Present Hallucinations: Denies Suicidal Ideation: Denies Homicidal Ideation: Denies Insight/Judgement: Fair Sleep: Fair Appetite: Good Muscle strength/Tone: Normal Gait/Station: Normal Psychiatric Treatment Plan - Problem List (1) Alcohol dependence with uncomplicated withdrawal Current Visit: No (2) Opioid dependence Current Visit: No (3) Cocaine dependence Current Visit: No (4) Opioid dependence on agonist therapy Current Visit: No (5) Nicotine dependence, uncomplicated Current Visit: No Qualifiers: Nicotine product type: cigarettes Qualified Code(s): F17.210 - Nicotine dependence, cigarettes, uncomplicated (6) Schizoaffective disorder Current Visit: No Qualifiers: Schizoaffective disorder type: bipolar Qualified Code(s): F25.0 - Schizoaffective disorder, bipolar type (7) Hepatitis C Current Visit: No Qualifiers: Viral hepatitis chronicity: chronic Hepatic coma status: without hepatic coma Qualified Code(s): B18.2 - Chronic viral hepatitis C (8) Low back pain Current Visit: No Qualifiers: Chronicity: chronic Back pain laterality: unspecified Initial treatment plan: 1) Discontinue Trazadone 100 mg po HS. 2) Start Trazadone 50 mg po HS. 3) Monitor progress
[2016-11-27] MEDS: PRENATAL VITAMINS W/ FOLIC ACID TABLET (FP) PO SCH (10:34)
[2016-11-27] MEDS: risperiDONE 1 MG TABLET (FP) PO SCH ×2 (10:34→21:21)
[2016-11-27] MEDS: AZITHROMYCIN 250 MG TABLET (FP) PO SCH (10:34)
[2016-11-27] MEDS: ACETAMINOPHEN 325 MG TABLET (FP) PO PRN (10:36)
[2016-11-27] MEDS: NICOTINE 21 MG/24 HOURS TOPICAL PATCH TD SCH (10:39)
[2016-11-27] MEDS: IBUPROFEN 400 MG TABLET (FP) PO PRN (21:21)
[2016-11-27] MEDS: THIAMINE HCL 100 MG TABLET (FP) PO SCH (21:21)
[2016-11-27] MEDS: diphenhydrAMINE HCL 50 MG CAPSULE PO PRN (21:22)
[2016-11-27] MEDS: traZODone HCL 50 MG TABLET (FP) PO SCH (21:24)
[2016-11-28] MEDS ORDERED: METHADONE HCL 10 MG TABLET ONE (05:57)
[2016-11-28] MEDS ORDERED: METHADONE HCL 40 MG DISPERSABLE TABLET ONE (05:57)
[2016-11-28] MEDS: METHADONE 40 MG, METHADONE 30 MG PO SCH (06:53)
[2016-11-28] MEDS: GABAPENTIN 300 MG CAPSULE (FP) PO SCH ×3 (06:53→21:37)
[2016-11-28] MEDS: NICOTINE POLACRILEX 4 MG GUM BUC PRN ×4 (06:55→21:38)
[2016-11-28] MEDS: ACETAMINOPHEN 325 MG TABLET (FP) PO PRN (06:55)
[2016-11-28] MEDS: guaiFENesin/D-METHORPHAN HB 10 ML UNIT-DOSE CUPS PO PRN ×3 (06:55→21:37)
[2016-11-28] MEDS: NICOTINE 21 MG/24 HOURS TOPICAL PATCH TD SCH (10:31)
[2016-11-28] MEDS: PRENATAL VITAMINS W/ FOLIC ACID TABLET (FP) PO SCH (10:32)
[2016-11-28] MEDS: risperiDONE 1 MG TABLET (FP) PO SCH ×2 (10:32→21:37)
[2016-11-28] MEDS: AZITHROMYCIN 250 MG TABLET (FP) PO SCH (10:32)
[2016-11-28] MEDS: IBUPROFEN 400 MG TABLET (FP) PO PRN (11:35)
[2016-11-28] MEDS: traZODone HCL 50 MG TABLET (FP) PO SCH (21:37)
[2016-11-28] MEDS: THIAMINE HCL 100 MG TABLET (FP) PO SCH (21:37)
[2016-11-28] MEDS: diphenhydrAMINE HCL 50 MG CAPSULE PO PRN (21:38)
[2016-11-29] MEDS ORDERED: METHADONE HCL 10 MG TABLET ONE (04:58)
[2016-11-29] MEDS ORDERED: METHADONE HCL 40 MG DISPERSABLE TABLET ONE (04:58)
[2016-11-29] MEDS: GABAPENTIN 300 MG CAPSULE (FP) PO SCH ×3 (06:56→21:38)
[2016-11-29] MEDS: METHADONE 40 MG, METHADONE 30 MG PO SCH (06:56)
[2016-11-29] MEDS: MAGNESIUM HYDROX 2400MG/30ML ORAL SUSPENSION 30 ML CUP PO PRN (06:56)
[2016-11-29] MEDS: NICOTINE POLACRILEX 4 MG GUM BUC PRN ×4 (06:59→21:39)
[2016-11-29] MEDS: NICOTINE 21 MG/24 HOURS TOPICAL PATCH TD SCH (10:21)
[2016-11-29] MEDS: PRENATAL VITAMINS W/ FOLIC ACID TABLET (FP) PO SCH (10:21)
[2016-11-29] MEDS: risperiDONE 1 MG TABLET (FP) PO SCH ×2 (10:21→21:37)
[2016-11-29] MEDS: AZITHROMYCIN 250 MG TABLET (FP) PO SCH (10:21)
[2016-11-29] MEDS: IBUPROFEN 400 MG TABLET (FP) PO PRN (10:23)
[2016-11-29] MEDS: guaiFENesin/D-METHORPHAN HB 10 ML UNIT-DOSE CUPS PO PRN ×2 (10:23→21:39)
[2016-11-29] MEDS ORDERED: MAGNESIUM CITRATE 300 ML BOTTLE PO PRN (13:07)
[2016-11-29] MEDS: traZODone HCL 50 MG TABLET (FP) PO SCH (21:37)
[2016-11-29] MEDS: diphenhydrAMINE HCL 50 MG CAPSULE PO PRN (21:38)
[2016-11-29] MEDS: THIAMINE HCL 100 MG TABLET (FP) PO SCH (21:38)
[2016-11-30] MEDS ORDERED: METHADONE HCL 10 MG TABLET ONE (05:33)
[2016-11-30] MEDS ORDERED: METHADONE HCL 40 MG DISPERSABLE TABLET ONE (05:34)
[2016-11-30] MEDS: METHADONE 40 MG, METHADONE 30 MG PO SCH (06:36)
[2016-11-30] MEDS: GABAPENTIN 300 MG CAPSULE (FP) PO SCH ×3 (06:36→21:50)
[2016-11-30] MEDS: NICOTINE POLACRILEX 4 MG GUM BUC PRN ×2 (06:41→10:26)
[2016-11-30] MEDS: guaiFENesin/D-METHORPHAN HB 10 ML UNIT-DOSE CUPS PO PRN (06:41)
[2016-11-30] MEDS: risperiDONE 1 MG TABLET (FP) PO SCH ×2 (10:25→21:50)
[2016-11-30] MEDS: NICOTINE 21 MG/24 HOURS TOPICAL PATCH TD SCH (10:25)
[2016-11-30] MEDS: PRENATAL VITAMINS W/ FOLIC ACID TABLET (FP) PO SCH (10:25)
[2016-11-30] MEDS: MAGNESIUM HYDROX 2400MG/30ML ORAL SUSPENSION 30 ML CUP PO PRN (14:32)
[2016-11-30] MEDS: diphenhydrAMINE HCL 50 MG CAPSULE PO PRN (21:50)
[2016-11-30] MEDS: THIAMINE HCL 100 MG TABLET (FP) PO SCH (21:50)
[2016-11-30] MEDS: traZODone HCL 50 MG TABLET (FP) PO SCH (21:50)
[2016-12-01] MEDS ORDERED: METHADONE HCL 10 MG TABLET ONE (04:15)
[2016-12-01] MEDS ORDERED: METHADONE HCL 40 MG DISPERSABLE TABLET ONE (04:15)
[2016-12-01] MEDS: GABAPENTIN 300 MG CAPSULE (FP) PO SCH ×3 (06:29→21:44)
[2016-12-01] MEDS: METHADONE 40 MG, METHADONE 30 MG PO SCH (06:29)
[2016-12-01 06:50] VITALS: TEMP 98
[2016-12-01] MEDS: PRENATAL VITAMINS W/ FOLIC ACID TABLET (FP) PO SCH (10:46)
[2016-12-01] MEDS: risperiDONE 1 MG TABLET (FP) PO SCH ×2 (10:46→21:44)
[2016-12-01] MEDS: NICOTINE POLACRILEX 4 MG GUM BUC PRN (10:47)
[2016-12-01] MEDS: guaiFENesin/D-METHORPHAN HB 10 ML UNIT-DOSE CUPS PO PRN (10:47)
[2016-12-01] MEDS: NICOTINE 21 MG/24 HOURS TOPICAL PATCH TD SCH (10:50)
[2016-12-01] MEDS: MAGNESIUM HYDROX 2400MG/30ML ORAL SUSPENSION 30 ML CUP PO PRN (14:53)
[2016-12-01] MEDS: diphenhydrAMINE HCL 50 MG CAPSULE PO PRN (21:44)
[2016-12-01] MEDS: traZODone HCL 50 MG TABLET (FP) PO SCH (21:44)
[2016-12-01] MEDS: THIAMINE HCL 100 MG TABLET (FP) PO SCH (21:45)
[2016-12-02] MEDS ORDERED: METHADONE HCL 40 MG DISPERSABLE TABLET ONE (05:09)
[2016-12-02] MEDS ORDERED: METHADONE HCL 10 MG TABLET ONE (05:09)
[2016-12-02] MEDS ORDERED: METHADONE 40 MG, METHADONE 30 MG PO SCH (06:15)
[2016-12-02] MEDS: GABAPENTIN 300 MG CAPSULE (FP) PO SCH (06:27)
[2016-12-02 07:24] VITALS: BP 114/62; PULSE 65
--- NOTE | 2016-12-02 08:16 | PN ---
Psychiatric Progress Note Vital Signs: Vital Signs Period Temp Pulse Resp BP Sys/Valentino Pulse Ox Last 24 Hr 98 F 65 16-18 114/62 Date of Session: 12/02/16 Chief Complaint:: Psychiatrist Discharge Note HPI: Patient addressing Alcohol, Opoid and Cocaine Dependence comorbid with Nicotine Dependence and Schizoaffective Disorder ROS: Hep C, LBP were medically managed Current Medications: Active Medications Generic Name Dose Route Start Last Admin Trade Name Freq PRN Reason Stop Dose Admin Acetaminophen 650 mg 11/25/16 15:48 11/28/16 06:55 Tylenol - PO 650 mg Q4H PRN Administration FEVER OR PAIN Al Hydroxide/Mg Hydroxide 30 ml 11/25/16 15:48 Mylanta Oral Suspension - PO Q6H PRN DYSPEPSIA Diphenhydramine HCl 50 mg 11/25/16 15:48 12/01/16 21:44 Benadryl - PO 50 mg HSMR1 PRN Administration FOR ITCHING Eucalyptus/Menthol/Phenol/Sorbitol 1 each 11/25/16 15:48 Cepastat Lozenge - MM Q4H PRN SORE THROAT Gabapentin 300 mg 11/25/16 22:00 12/02/16 06:27 Neurontin - PO Not Given TID FARHAN Guaifenesin 10 ml 11/25/16 15:48 12/01/16 10:47 Robitussin Dm - PO 10 ml Q6H PRN Administration COUGH Ibuprofen 400 mg 11/25/16 15:48 11/29/16 10:23 Motrin - PO 400 mg Q6H PRN Administration PAIN Loperamide HCl 4 mg 11/25/16 15:48 Imodium - PO Q6H PRN DIARRHEA Magnesium Hydroxide 30 ml 11/25/16 15:48 12/01/16 14:53 Milk Of Magnesia - PO 30 ml DAILY PRN Administration CONSTIPATION Methadone HCl 40 mg/ Methadone 70 mg 12/02/16 06:15 12/02/16 06:27 HCl 30 mg PO 70 mg DAILY@0600 FARHAN Administration Nicotine 21 mg 11/26/16 10:00 12/01/16 10:50 Nicoderm Patch - TD 21 mg DAILY FARHAN Administration Nicotine Polacrilex 4 mg 11/25/16 15:48 12/01/16 10:47 Nicorette Gum - BUC 4 mg Q2H PRN Administration NICOTINE REPLACEMENT RX Multivit/Folic Acid/Iron 1 tab 11/26/16 10:00 12/01/16 10:46 Vitamins (Sjr) - PO 1 tab DAILY FARHAN Administration Pseudoephedrine/Triprolidine 1 combo 11/25/16 15:48 Actifed - PO TID PRN NASAL CONGESTION Risperidone 1 mg 11/25/16 22:00 12/01/16 21:44 Risperdal - PO 1 mg BID FARHAN Administration Thiamine HCl 100 mg 11/25/16 22:00 12/01/16 21:45 Vitamin B1 - PO 100 mg HS FARHAN Administration Trazodone HCl 50 mg 11/27/16 22:00 12/01/16 21:44 Desyrel - PO 50 mg HS FARHAN Administration Current Side Effect: No Lab tests ordered: Yes Lab tests reviewed: Yes Provider note:: Patient has completed this program today. He has partially met his treatment goals and will continue to address his issues at outpatient treatment at [facility]. Told sports book writer that from his participation in this program, he has learned about his triggers and other tools he can use to maintain a substance-free lifestyle. He responded well to Risperdal 1 mg po BID , Gabapentin 300 mg po TID and Trazadone 50 mg po HS. Scripts for these medications are electronically transmitted to [address] [place] [address] Pharmacy at [address] [place] [address]. He is stable for discharge today Total face to face time:: 35 Mental Status Exam - Mental Status Exam Alert and Oriented to: Time, Place, Person Cognitive Function: Fair Patient Appearance: Well Groomed Mood: Hopeful, Euthymic Affect: Appropriate Patient Behavior: Cooperative Speech Pattern: Clear Voice Loudness: Normal Thought Process: Intact Thought Disorder: Not Present Hallucinations: Denies Suicidal Ideation: Denies Homicidal Ideation: Denies Insight/Judgement: Fair Sleep: Fair Appetite: Good Muscle strength/Tone: Normal Gait/Station: Normal Psychiatric Treatment Plan - Problem List (1) Alcohol dependence with uncomplicated withdrawal Current Visit: No (2) Opioid dependence Current Visit: No (3) Cocaine dependence Current Visit: No (4) Opioid dependence on agonist therapy Current Visit: No (5) Nicotine dependence, uncomplicated Current Visit: No Qualifiers: Nicotine product type: cigarettes Qualified Code(s): F17.210 - Nicotine dependence, cigarettes, uncomplicated (6) Schizoaffective disorder Current Visit: No Qualifiers: Schizoaffective disorder type: bipolar Qualified Code(s): F25.0 - Schizoaffective disorder, bipolar type (7) Hepatitis C Current Visit: No Qualifiers: Viral hepatitis chronicity: chronic Hepatic coma status: without hepatic coma Qualified Code(s): B18.2 - Chronic viral hepatitis C (8) Low back pain Current Visit: No Qualifiers: Chronicity: chronic Back pain laterality: unspecified Initial treatment plan: Patient is discharged today and referred to [facility] for outpatient treatment
[2016-12-02] MEDS: risperiDONE 1 MG TABLET (FP) PO SCH (09:39)
[2016-12-02] MEDS: PRENATAL VITAMINS W/ FOLIC ACID TABLET (FP) PO SCH (09:39)
[2016-12-02] MEDS: NICOTINE POLACRILEX 4 MG GUM BUC PRN (09:39)
[2016-12-02] MEDS: NICOTINE 21 MG/24 HOURS TOPICAL PATCH TD SCH (09:39)
== END 2016-12-02 09:35 | disposition home or self-care (01) | DRG 772 ==
LOC: YASAS 12:32 → Y3W 12:37
PROVIDERS: ADMIT Psychiatry & Neurology Psychiatry; ATTEND Psychiatry & Neurology Psychiatry
PROC: HZ42ZZZ Group Counseling for Substance Abuse Treatment, Cognitive-Behavioral (ICD-10-PCS; principal; 2016-11-25)
DX: F10.20 Alcohol dependence, uncomplicated (principal); F11.20 Opioid dependence, uncomplicated; F14.20 Cocaine dependence, uncomplicated; F17.210 Nicotine dependence, cigarettes, uncomplicated; F25.0 Schizoaffective disorder, bipolar type; B18.2 Chronic viral hepatitis C; M54.5 Low back pain; G89.29 Other chronic pain
CPT/HCPCS: J2794

== ENCOUNTER 2018-10-12 04:19 | Emergency (ER) | payer OTHER ==
[2018-10-12 04:50] VITALS: BP 116/84; PULSE 87; TEMP 97.7; BMI 27.3
--- NOTE | 2018-10-12 08:36 | PDOC ---
History of Present Illness - General Chief Complaint: Alcohol intoxication Stated Complaint: INTOX Time Seen by Provider: 10/12/18 08:08 History Source: Patient - History of Present Illness Timing/Duration: other Past History - Past Medical History Allergies/Adverse Reactions: Allergies Allergy/AdvReac Type Severity Reaction Status Date / Time Fish Containing Products Allergy Severe Rash Verified 10/12/18 04:25 mushroom Allergy Verified 10/12/18 04:25 No Known Drug Allergies Allergy Verified 10/12/18 04:25 Home Medications: Ambulatory Orders Risperidone [Risperdal] 2 mg PO HS #30 tablet 11/24/16 Nicotine Patch [Nicoderm Patch -] 21 mg TD DAILY #14 patch 12/01/16 Nicotine Polacrilex [Nicorelief -] 4 mg BUC Q2H PRN #60 gum 12/01/16 Gabapentin [Neurontin -] 300 mg PO TID #60 capsule 12/02/16 Risperidone [Risperdal -] 1 mg PO BID #60 tablet 12/02/16 traZODone HCL [Desyrel -] 50 mg PO HS #30 tablet 12/02/16 Anemia: No Asthma: No Cancer: No Cardiac Disorders: No CVA: No COPD: No Dementia: No Diabetes: No GI Disorders: No Disorders: No HTN: No Hypercholesterolemia: No Kidney Stones: No Liver Disease: Yes Seizures: No Thyroid Disease: No - Surgical History Abdominal Surgery: No Appendectomy: No Cardiac Surgery: No Cholecystectomy: No Lung Surgery: No Neurologic Surgery: No Orthopedic Surgery: No - Reproductive History Testicular Surgery: No - Suicide/Smoking/Psychosocial Hx Smoking History: Never smoked Have you smoked in the past 12 months: No Number of Cigarettes Smoked Daily: 30 Cigars Per Day: 0 Information on smoking cessation initiated: No 'Breaking Loose' booklet given: 11/21/16 (given on floor) Hx Alcohol Use: No Drug/Substance Use Hx: No Substance Use Type: Alcohol (Started drinking alcohol at age 10, consumes 2 pints of liquor & 3x 6pk(24 oz) daily. Last drink on 11/21/16), Cocaine (Started using cocaine at age 12, consumes $30 worth daily. Last used on 11/20/16), Heroin (Started using heroin at age 12, consumes 10 bags daily. Last used on 11/20/16) Hx Substance Use Treatment: Yes (4 previous inpt detox @ [facility]) Review of Systems - Review of Systems Constitutional: No: Fever Respiratory: No: Shortness of Breath Cardiac (ROS): No: Chest Pain ABD/GI: No: Diarrhea, Nausea, Vomiting *Physical Exam - Vital Signs Last Vital Signs Temp Pulse Resp BP Pulse Ox 97.7 F 87 19 116/84 97 10/12/18 04:19 10/12/18 04:19 10/12/18 04:19 10/12/18 04:19 10/12/18 04:19 - Physical Exam General Appearance: Yes: Appropriately Dressed. No: Apparent Distress HEENT: positive: Normal Voice, Other (atraumatic). negative: Scleral Icterus (R ), Scleral Icterus (L) Respiratory/Chest: positive: Lungs Clear, Normal Breath Sounds. negative: Respiratory Distress Cardiovascular: positive: Regular Rate, S1, S2 Gastrointestinal/Abdominal: positive: Soft. negative: Tender Extremity: positive: Normal Inspection Integumentary: positive: Dry, Warm Neurologic: positive: Fully Oriented, Alert, Normal Mood/Affect (no tremor or asterixis), Motor Strength 5/5 Moderate Sedation - Procedure Monitoring Vital Signs: Procedure Monitoring Vital Signs Temperature 97.7 F 10/12/18 04:19 Pulse Rate 87 10/12/18 04:19 Respiratory Rate 19 10/12/18 04:19 Blood Pressure 116/84 10/12/18 04:19 O2 Sat by Pulse Oximetry (%) 97 10/12/18 04:19 Medical Decision Making - Medical Decision Making 10/12/18 08:32 37-year-old male, heroin and ETOH abuse, HCV, schizophrenia, depression, not on any meds, undomiciled, here requesting rehabilitation. Patient states the last time he had any inpatient detox or rehabilitation admission was several years ago. Denies any history of seizures. States last time he drank or did heroin was last night. Denies any nausea, vomiting, weakness, abdominal pain at this time. Pt refusing any meds/labs at this time. Stable and alert in ED and does not appears acutely intoxicated. 10/12/18 08:33 I called staff at [facility] to discuss case. Staff also spoke to pt on the phone. Pt accepted. Security to transport pt 10/12/18 08:41 Pt now informs me that he fell last night and hit his head in setting of ETOH intoxication. States one of his tooth fell out and that he might have had LOC. Denies KATZ, dizziness, n/v. States a bystander called EMS but pt refused to come to ER at the time. Pt alert w/ no neuro deficits. CTH pending 10/12/18 09:05 CTH read as neg. Pt stable to be transported to [facility] *DC/Admit/Observation/Transfer Diagnosis at time of Disposition: ETOH abuse - Discharge Dispostion Disposition: HOME Condition at time of disposition: Fair - Referrals Referrals: ON STAFF,NOT [Primary Care Provider] - - Patient Instructions Printed Discharge Instructions: DI for Alcohol Abuse Additional Instructions: Your CT head was negative here You were transported to [facility] [place] [place] detox facility - Post Discharge Activity
== END 2018-10-12 09:12 | disposition home or self-care (01) ==
LOC: JER 04:19
DX: F10.120 Alcohol abuse with intoxication, uncomplicated (principal); S09.8XXA Other specified injuries of head, initial encounter; W18.39XA Other fall on same level, initial encounter; Y93.89 Activity, other specified; Y92.89 Other specified places as the place of occurrence of the external cause; Y99.8 Other external cause status; F11.10 Opioid abuse, uncomplicated; B18.2 Chronic viral hepatitis C; F20.9 Schizophrenia, unspecified; Z59.0 Homelessness
CPT/HCPCS: 70450-TC; 99282-25

== ENCOUNTER 2018-10-12 09:29 | Inpatient (IN) | payer OTHER ==
[2018-10-12 10:24] VITALS: BMI 24.5
--- NOTE | 2018-10-12 11:01 | HP ---
COWS - Scale Resting Pulse: 0= TN 80 or Below Sweatin= Chills/Flushing Restless Observation: 1= Difficult to Sit Still Pupil Size: 1= Pupils >than Normal Bone or Joint Aches: 2= Severe Diffuse Aches Runny Nose/ Eye Tearin= Nasal Congestion GI Upset > 30mins: 1= Stomach Cramp Tremor Observation: 2= Slight Tremor Visible Yawning Observation: 0= None Anxiety or Irritability: 1=Feels Anxious/Irritable Goose Flesh Skin: 0=Smooth Skin COWS Score: 10 CIWA Score Nausea/Vomitin Muscle Tremors: 2 Anxiety: 3 Agitation: 2 Paroxysmal Sweats: 2 Orientation: 0-Oriented Tacttile Disturbances: 2-Mild Itch/Numbness/Burn Auditory Disturbances: 0-None Visual Disturbances: 0-None Headache: 0-None Present CIWA-Ar Total Score: 13 - Admission Criteria OASAS Guidelines: Admission for Medically Managed Detox: Requires at least one of the followin. CIWA greater than 12 2. Seizures within the past 24 hours 3. Delirium tremens within the past 24 hours 4. Hallucinations within the past 24 hours 5. Acute intervention needed for co occurring medical disorder 6. Acute intervention needed for co occurring psychiatric disorder 7. Severe withdrawal that cannot be handled at a lower level of care (continued vomiting, continued diarrhea, abnormal vital signs) requiring intravenous medication and/or fluids 8. Patient presents the following: CIWA greater than 12 Admission Criteria Met: Admission criteria met Admission ROS [facility] Chief Complaint: I overdosed last night and was brought to the hospital . I need detox. Allergies/Adverse Reactions: Allergies Allergy/AdvReac Type Severity Reaction Status Date / Time Fish Containing Products Allergy Severe Rash Verified 10/12/18 04:25 No Known Drug Allergies Allergy Verified 10/12/18 04:25 History of Present Illness: 37 y/o m pt with h/o opioid dep, chronic alcoholism and cocaine dep since age 10 . Who Overdosed last night now concerned and seeking detox/rehab. Exam Limitations: No Limitations - Ebola screening Have you traveled outside of the country in the last 21 days: No Have you had contact with anyone from an Ebola affected area: No Have you been sick,other than usual withdrawal symptoms: No Do you have a fever: No - Review of Systems Constitutional: Chills, Malaise, Unintentional Wgt. Loss (28 lbs over the past 6 months) EENT: reports: Dental Problems (pt sustained trauma to mouth after OD . Broke off upper permant bridge.) Respiratory: reports: No Symptoms reported Cardiac: reports: No Symptoms Reported GI: reports: Indigestion, Abdominal cramping : reports: No Symptoms Reported Musculoskeletal: reports: Joint Pain (kne pain), Muscle Pain (low back pain) Integumentary: reports: Other (active track sweeney left cubital fossa) Neuro: reports: No Symptoms reported Endocrine: reports: No Symptoms Reported Hematology: reports: No Symptoms Reported Psychiatric: reports: Anxious, Depressed, other Other Systems: Reviewed and Negative Patient History - Patient Medical History Hx Anemia: No Hx Asthma: No Hx Chronic Obstructive Pulmonary Disease (COPD): No Hx Cancer: No Hx Cardiac Disorders: No Hx Congestive Heart Failure: No Hx Hypertension: No Hx Hypercholesterolemia: No Hx Pacemaker: No HX Cerebrovascular Accident: No Hx Seizures: No Hx Dementia: No Hx Diabetes: No Hx Gastrointestinal Disorders: No Hx Liver Disease: Yes Hx Genitourinary Disorders: No Hx Sexually Transmitted Disorders: No Hx Renal Disease (ESRD): No Hx Thyroid Disease: No Hx Human Immunodeficiency Virus (HIV): No Hx Hepatitis C: Yes (hx interferon x 7 months ) Hx Depression: Yes Hx Suicide Attempt: Yes (tried to hang himself at age 19) Hx Bipolar Disorder: Yes Hx Schizophrenia: Yes - Patient Surgical History Past Surgical History: No Hx Neurologic Surgery: No Hx Cataract Extraction: No Hx Cardiac Surgery: No Hx Lung Surgery: No Hx Breast Surgery: No Hx Breast Biopsy: No Hx Abdominal Surgery: No Hx Appendectomy: No Hx Cholecystectomy: No Hx Genitourinary Surgery: No Hx Section: No Hx Orthopedic Surgery: No Anesthesia Reaction: No - PPD History Date: 08/20/16 - Reproductive History Patient is a Female of Child Bearing Age (11 -55 yrs old): No - Smoking Cessation Smoking history: Never smoked Have you smoked in the past 12 months: No Aproximately how many cigarettes per day: 30 Cigars Per Day: 0 Hx Chewing Tobacco Use: No - Substance & Tx. History Hx Alcohol Use: Yes Hx Substance Use: Yes Substance Use Type: Alcohol, Cocaine, Heroin Hx Substance Use Treatment: Yes - Substances Abused Alcohol Route: Oral Frequency: Daily Amount used: beer 24 oz-12 cans /day, vodka 1/2 pt /day Age of first use: 10 Date of Last Use: 10/11/18 Heroin Route: Injection Frequency: Daily Amount used: 4 bags/day Age of first use: 10 Date of Last Use: 10/11/18 (pt OD'ed required narcan ) Cocaine Route: Injection Frequency: Daily Amount used: $60./day Age of first use: 10 Date of Last Use: 10/11/18 Family Disease History - Family Disease History Family Disease History: Heart Disease: Grandparent ([place] - grandmother), Other: Father ( HIV - drug use) Admission Physical Exam S - Vital Signs Vital Signs: Vital Signs - 24 hr 10/12/18 10:15 Temperature 96.4 F L Pulse Rate 80 Respiratory 18 Rate Blood Pressure 132/87 37 y/o m pt aox3 in nad ambulating - Physical General Appearance: Yes: Appropriately Dressed, Thin, Anxious HEENTM: Yes: EOMI, Normal Voice, VIKA, Nasal Congestion, Rhinorrhea, Other ( missing upper incisors) Respiratory: Yes: Within Normal Limits, Chest Non-Tender, Lungs Clear, Normal Breath Sounds, No Respiratory Distress Neck: Yes: Within Normal Limits, No masses,lesions,Nodules, Supple, Trachea in good position Breast: Yes: Within Normal Limits Cardiology: Yes: Within Normal Limits, Regular Rhythm, Regular Rate, S1, S2 Abdominal: Yes: Within Normal Limits, Normal Bowel Sounds, Non Tender, Flat, Soft Genitourinary: Yes: Within Normal Limits Back: Yes: Decreased Range of Motion Musculoskeletal: Yes: Back pain, Muscle Pain, Muscle weakness Extremities: Yes: Tremors, Other (active track sweeney left cubital fossa) Neurological: Yes: automatic packer operator II-XII NML intact, Fully Oriented, Alert, Motor Strength 5/5, Normal Response Integumentary: Yes: Within Normal Limits, Moist Lymphatic: Yes: Within Normal Limits - Diagnostic (1) Alcohol dependence with uncomplicated withdrawal Current Visit: No Status: Chronic (2) Cocaine dependence Current Visit: No Status: Chronic Qualifiers: Substance use status: uncomplicated Qualified Code(s): F14.20 - Cocaine dependence, uncomplicated (3) Opioid dependence Current Visit: No Status: Chronic Qualifiers: Substance use status: uncomplicated Qualified Code(s): F11.20 - Opioid dependence, uncomplicated (4) Hepatitis C Current Visit: No Status: Chronic Qualifiers: Viral hepatitis chronicity: chronic Hepatic coma status: without hepatic coma Qualified Code(s): B18.2 - Chronic viral hepatitis C (5) Low back pain Current Visit: Yes Status: Acute Qualifiers: Chronicity: acute Back pain laterality: unspecified (6) Nicotine dependence, uncomplicated Current Visit: No Status: Chronic Qualifiers: Nicotine product type: cigarettes Qualified Code(s): F17.210 - Nicotine dependence, cigarettes, uncomplicated (7) Schizoaffective disorder Current Visit: Yes Status: Chronic Qualifiers: Schizoaffective disorder type: bipolar Qualified Code(s): F25.0 - Schizoaffective disorder, bipolar type Cleared for Admission [facility] - Detox or Rehab [facility] Level of Care: Medically Managed Detox Regimen/Protocol: Methadone/Librium Claeared for Rehab Admission: No S Breath Alcohol Content Breath Alcohol Content: 0.051 Urine Drug Screen - Results Drug Screen Negative: No Urine Drug Screen Results: IKER-Cocaine, OPI-Opiates, BAR-Barbiturates, FEN- Fentanyl
[2018-10-12] MEDS ORDERED: chlordiazePOXIDE HCL 25 MG CAPSULE PO PRN (11:24)
[2018-10-12] MEDS ORDERED: MAG HYDROX/AL HYDROX/SIMETH 30 ML UNIT-DOSE CUP PO PRN (11:24)
[2018-10-12] MEDS ORDERED: P-EPHED 60MG/TRIPROLIDI 2.5MG TABLET PO PRN (11:24)
[2018-10-12] MEDS ORDERED: MENTHOL/PHENOL 1 EACH UD MM PRN (11:24)
[2018-10-12] MEDS ORDERED: NICOTINE POLACRILEX 4 MG GUM BUC PRN (11:24)
[2018-10-12] MEDS ORDERED: hydrOXYzine PAMOATE 25 MG CAPSULE (FP) PO PRN (11:24)
[2018-10-12] MEDS ORDERED: ACETAMINOPHEN 325 MG TABLET (FP) PO PRN (11:24)
[2018-10-12] MEDS ORDERED: MAGNESIUM HYDROX 2400MG/30ML ORAL SUSPENSION 30 ML CUP PO PRN (11:24)
[2018-10-12] MEDS ORDERED: LOPERAMIDE HCL 2 MG CAPSULE PO PRN (11:24)
[2018-10-12] MEDS ORDERED: guaiFENesin/D-METHORPHAN HB 10 ML UNIT-DOSE CUPS PO PRN (11:24)
[2018-10-12] MEDS ORDERED: MAGNESIUM CITRATE 300 ML BOTTLE PO PRN (11:24)
[2018-10-12] MEDS ORDERED: METHADONE HCL 10 MG TABLET (FOR DETOX USE ONLY) PO ONE ×2 (11:45→23:00)
--- NOTE | 2018-10-12 15:51 | CONSULT ---
[facility] Psychiatric Consult - Data Date of interview: 10/12/18 Admission source: [facility] Identifying data: Patient is approached for psychiatric interview. Mr Espana declines to be evaluated by psychiatrist. Nursing staff is made aware.
[2018-10-12] MEDS: chlordiazePOXIDE HCL 25 MG CAPSULE PO SCH ×2 (17:07→22:14)
[2018-10-12] MEDS ORDERED: MELATONIN 5 MG TABLETS PO PRN (22:00)
[2018-10-12] MEDS: THIAMINE HCL 100 MG TABLET (FP) PO SCH (22:14)
[2018-10-12] MEDS: IBUPROFEN 400 MG TABLET (FP) PO PRN (22:14)
[2018-10-12 23:20] LABS: URINE APPEARANCE CLEAR; URINE BILIRUBIN NEGATIVE (<2.0 mg/dL); URINE COLOR AMBER; URINE GLUCOSE (UA) NEGATIVE (NEGATIVE); URINE KETONE NEGATIVE (NEGATIVE); URINE LEUK ESTERASE NEGATIVE (NEGATIVE); URINE NITRITE NEGATIVE (NEGATIVE); URINE PROTEIN NEGATIVE (NEGATIVE); URINE UROBILINOGEN 4.0 E.U/dl mg/dL (0.2-1.0)
[2018-10-13] MEDS: chlordiazePOXIDE HCL 25 MG CAPSULE PO SCH ×4 (05:43→22:04)
[2018-10-13] MEDS ORDERED: NICOTINE 21 MG/24 HOURS TOPICAL PATCH TD SCH (10:00)
[2018-10-13] MEDS ORDERED: METHADONE HCL 10 MG TABLET (FOR DETOX USE ONLY) PO SCH (10:00)
[2018-10-13] MEDS ORDERED: PRENATAL VITAMINS W/ FOLIC ACID TABLET (FP) PO SCH (10:00)
[2018-10-13 10:32] LABS: HEMATOCRIT 41.2 % (35.4-49); HEMOGLOBIN 13.2 GM/dL (11.7-16.9); MCH 28.3 pg (25.7-33.7); MEAN CELL VOLUME 88.3 fl (80-96); MEAN PLT VOLUME 8.9 fl (7.5-11.1); PLATELET COUNT 200 K/MM3 (134-434); RBC 4.67 M/mm3 (4.00-5.60); RDW 12.9 % (11.9-15.9); WHITE BLOOD COUNT 6.1 K/mm3 (4.0-10.0)
[2018-10-13 10:47] LABS: ALBUMIN 3.6 g/dl (3.4-5.0); ALK PHOS 96 U/L (45-117); ANION GAP 11 MMOL/L (8-16); BILIRUBIN,TOTAL 0.4 mg/dL (0.2-1); BLOOD UREA NITROGEN 14 mg/dL (7-18); CALCIUM 8.5 mg/dL (8.5-10.1); CHLORIDE 104 mmol/L (98-107); CO2 26 mmol/L (21-32); CREATININE 1.1 mg/dL (0.55-1.3); GLUCOSE,RANDOM 79 mg/dL (74-106); POTASSIUM 3.7 mmol/L (3.5-5.1); SGOT/AST 21 U/L (15-37); SGPT/ALT 25 U/L (13-61); SODIUM 141 mmol/L (136-145)
--- NOTE | 2018-10-13 15:25 | PN ---
S CIWA - CIWA Score Nausea/Vomitin Muscle Tremors: 4-Moderate,w/Arms Extend Anxiety: 4-Mod. Anxious/Guarded Agitation: 4-Moderately Restless Paroxysmal Sweats: 3 Orientation: 0-Oriented Tacttile Disturbances: 0-None Auditory Disturbances: 0-None Visual Disturbances: 0-None Headache: 1-Very Mild CIWA-Ar Total Score: 18 BHS COWS - Scale Resting Pulse: 0= [place] 80 or Below Sweatin=Flushed/Facial Moisture Restless Observation: 3= Extraneous Movement Pupil Size: 0= Normal to Room Light Bone or Joint Aches: 2= Severe Diffuse Aches Runny Nose/ Eye Tearin= Runny Nose/Eyes GI Upset > 30mins: 3= Vomiting/Diarrhea Tremor Observation of Outstretched Hands: 2= Slight Tremor Visible Yawning Observation: 1= 1-2x During Session Anxiety or Irritability: 2=Irritable/Anxious Goose Flesh Skin: 0=Smooth Skin COWS Score: 17 S Progress Note (SOAP) Subjective: Chills, stomach ache, sweating, tremor, interrupted sleep Objective: 10/13/18 15:23 Last Vital Signs Temp Pulse Resp BP Pulse Ox 96.6 F L 79 18 115/82 10/13/18 13:35 10/13/18 13:35 10/13/18 13:35 10/13/18 13:35 Laboratory Tests 10/12/18 10/12/18 10/13/18 11:30 22:00 06:00 WBC 6.1 RBC 4.67 Hgb 13.2 Hct 41.2 MCV 88.3 MCH 28.3 MCHC 32.0 RDW 12.9 Plt Count 200 D MPV 8.9 Sodium Potassium Chloride Carbon Dioxide Anion Gap BUN Creatinine Creat Clearance w eGFR Random Glucose Calcium Total Bilirubin AST ALT Alkaline Phosphatase Total Protein Albumin Urine Color [place] Urine Appearance Clear Urine pH 5.0 Ur Specific [place] 1.032 Urine Protein Negative Urine Glucose (UA) Negative Urine Ketones Negative Urine Blood Negative Urine Nitrite Negative Urine Bilirubin Negative Urine Urobilinogen 4.0 e.u/dl Ur Leukocyte Esterase Negative RPR Titer HIV 1&2 Antibody Screen Negative HIV P24 Antigen Negative 10/13/18 10/13/18 06:00 06:00 WBC RBC Hgb Hct MCV MCH MCHC RDW Plt Count MPV Sodium 141 Potassium 3.7 Chloride 104 Carbon Dioxide 26 Anion Gap 11 BUN 14 Creatinine 1.1 Creat Clearance w eGFR > 60 Random Glucose 79 Calcium 8.5 Total Bilirubin 0.4 AST 21 ALT 25 Alkaline Phosphatase 96 Total Protein 7.0 Albumin 3.6 Urine Color Urine Appearance Urine pH Ur Specific [place] Urine Protein Urine Glucose (UA) Urine Ketones Urine Blood Urine Nitrite Urine Bilirubin Urine Urobilinogen Ur Leukocyte Esterase RPR Titer Nonreactive HIV 1&2 Antibody Screen HIV P24 Antigen Labs reviewed Assessment: 10/13/18 15:23 Withdrawal symptoms Plan: Continue detox Encouraged PO water intake
[2018-10-13] MEDS: IBUPROFEN 400 MG TABLET (FP) PO PRN (17:34)
[2018-10-13] MEDS: THIAMINE HCL 100 MG TABLET (FP) PO SCH (22:04)
[2018-10-14] MEDS: chlordiazePOXIDE HCL 25 MG CAPSULE PO SCH (05:54)
[2018-10-14 06:27] VITALS: BP 107/68; PULSE 55; TEMP 97
[2018-10-14] MEDS ORDERED: METHADONE HCL 5 MG TABLET (FOR DETOX USE ONLY) PO SCH (10:00)
--- NOTE | 2018-10-14 11:15 | DS ---
[facility] Detox Discharge Summary Admission Date: 10/12/18 Discharge Date: 10/14/18 - History Present History: Alcohol Dependence, Cocaine Dependence, Opioid Dependence Additional Comments: Patient decided to leave AMA despite encouragement from staff to complete detox. As per patient, he has business to take care of. Patient mentioned that he has to sign his divorce papers today. Prepress Operator explained importance of completing detox and consequences of withdrawal but he was reluctant to hear anything stating that he made up his mind to leave. As per patient, he gets high by himself and that he OD once. Patient then told radio news writer that he can have someone around him when he's using opioid in case he OD. 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 Patient is A, A, Ox3, in nad, ambulatory. Pertinent Past History: Opioid dependence Cocaine dependence Alcohol dependence Hepatitis C Bipolar disorder Schizophrenia - Physical Exam Results Vital Signs: Vital Signs Temperature 97 F L 10/14/18 06:26 Pulse Rate 55 L 10/14/18 06:26 Respiratory Rate 18 10/14/18 06:26 Blood Pressure 107/68 10/14/18 06:26 O2 Sat by Pulse Oximetry (%) Pertinent Admission Physical Exam Findings: Withdrawal symptoms Laboratory Tests 10/12/18 10/12/18 10/13/18 11:30 22:00 06:00 WBC 6.1 RBC 4.67 Hgb 13.2 Hct 41.2 MCV 88.3 MCH 28.3 MCHC 32.0 RDW 12.9 Plt Count 200 D MPV 8.9 Sodium Potassium Chloride Carbon Dioxide Anion Gap BUN Creatinine Creat Clearance w eGFR Random Glucose Calcium Total Bilirubin AST ALT Alkaline Phosphatase Total Protein Albumin Urine Color [place] Urine Appearance Clear Urine pH 5.0 Ur Specific [place] 1.032 Urine Protein Negative Urine Glucose (UA) Negative Urine Ketones Negative Urine Blood Negative Urine Nitrite Negative Urine Bilirubin Negative Urine Urobilinogen 4.0 e.u/dl Ur Leukocyte Esterase Negative RPR Titer HIV 1&2 Antibody Screen Negative HIV P24 Antigen Negative 10/13/18 10/13/18 06:00 06:00 WBC RBC Hgb Hct MCV MCH MCHC RDW Plt Count MPV Sodium 141 Potassium 3.7 Chloride 104 Carbon Dioxide 26 Anion Gap 11 BUN 14 Creatinine 1.1 Creat Clearance w eGFR > 60 Random Glucose 79 Calcium 8.5 Total Bilirubin 0.4 AST 21 ALT 25 Alkaline Phosphatase 96 Total Protein 7.0 Albumin 3.6 Urine Color Urine Appearance Urine pH Ur Specific [place] Urine Protein Urine Glucose (UA) Urine Ketones Urine Blood Urine Nitrite Urine Bilirubin Urine Urobilinogen Ur Leukocyte Esterase RPR Titer Nonreactive HIV 1&2 Antibody Screen HIV P24 Antigen Labs reviewed - Medication Discharge Medications: Ambulatory Orders Risperidone [Risperdal] 2 mg PO HS #30 tablet 11/24/16 Nicotine Patch [Nicoderm Patch -] 21 mg TD DAILY #14 patch 12/01/16 Nicotine Polacrilex [Nicorelief -] 4 mg BUC Q2H PRN #60 gum 12/01/16 Gabapentin [Neurontin -] 300 mg PO TID #60 capsule 12/02/16 Risperidone [Risperdal -] 1 mg PO BID #60 tablet 12/02/16 traZODone HCL [Desyrel -] 50 mg PO HS #30 tablet 12/02/16 Naloxone HCl [Narcan] 4 mg NS PRN #1 kit 10/14/18 - Diagnosis (1) Depression Status: Chronic (2) Bipolar disorder Status: Chronic (3) Schizophrenia Status: Chronic (4) Opioid dependence on agonist therapy Status: Acute (5) Alcohol dependence with uncomplicated withdrawal Status: Acute (6) Cocaine dependence Status: Chronic Qualifiers: Substance use status: uncomplicated Qualified Code(s): F14.20 - Cocaine dependence, uncomplicated (7) Hepatitis C Status: Chronic Qualifiers: Viral hepatitis chronicity: chronic Hepatic coma status: without hepatic coma Qualified Code(s): B18.2 - Chronic viral hepatitis C - AMA Did Patient Leave Against Medical Advice: Yes (Instructed to call 911 if feeling sick or any withdrawal symptoms)
[2018-10-14] MEDS ORDERED: chlordiazePOXIDE 5 MG CAPSULE PO SCH (17:00)
[2018-10-15] MEDS ORDERED: chlordiazePOXIDE HCL 10 MG CAPSULE PO SCH (17:00)
[2018-10-16] MEDS ORDERED: METHADONE HCL 10 MG TABLET (FOR DETOX USE ONLY) PO SCH (10:00)
[2018-10-17] MEDS ORDERED: METHADONE HCL 5 MG TABLET (FOR DETOX USE ONLY) PO SCH (06:00)
== END 2018-10-14 10:15 | disposition left against medical advice (07) | DRG 770 ==
LOC: YASAS 09:29 → Y3N 11:34
PROC: HZ2ZZZZ Detoxification Services for Substance Abuse Treatment (ICD-10-PCS; principal; 2018-10-12)
DX: F11.20 Opioid dependence, uncomplicated (principal); F10.230 Alcohol dependence with withdrawal, uncomplicated; F14.20 Cocaine dependence, uncomplicated; F17.210 Nicotine dependence, cigarettes, uncomplicated; F32.9 Major depressive disorder, single episode, unspecified; F31.9 Bipolar disorder, unspecified; F20.9 Schizophrenia, unspecified; F25.9 Schizoaffective disorder, unspecified; B18.2 Chronic viral hepatitis C; M54.5 Low back pain; Z91.013 Allergy to seafood; Z91.5 Personal history of self-harm
CPT/HCPCS: 36415; 80053; 81003; 85027; 86593; 87389

== ENCOUNTER 2023-01-20 10:59 | Inpatient (IN) | payer OTHER ==
[2023-01-20 11:48] VITALS: BMI 20.7
[2023-01-20] MEDS ORDERED: MAGNESIUM HYDROX 2400MG/30ML ORAL SUSPENSION 30 ML CUP PO PRN (12:47)
[2023-01-20] MEDS ORDERED: BUPRENORPHINE HCL 150 MCG, BUPRENORPHINE HCL 75 MCG BC ONE (12:47)
[2023-01-20] MEDS ORDERED: IBUPROFEN 400 MG TABLET (FP) PO PRN (12:47)
[2023-01-20] MEDS ORDERED: MAG HYDROX/AL HYDROX/SIMETH 30 ML UNIT-DOSE CUP PO PRN (12:47)
[2023-01-20] MEDS ORDERED: cloNIDine HCL 0.1 MG TABLET PO ONE ×2 (12:47→14:43)
[2023-01-20] MEDS ORDERED: BENZOCAINE/MENTHOL (CHLORASEPTIC ) LOZENGE MM PRN (12:47)
[2023-01-20] MEDS ORDERED: ONDANSETRON *ODT* 4 MG TABLET SL PRN (12:47)
[2023-01-20] MEDS ORDERED: POLYETHYLENE GLYCOL (HEALTHYLAX) 3350 17 GM PACKET PO PRN (12:47)
[2023-01-20] MEDS ORDERED: DICYCLOMINE HCL 10 MG CAPSULE PO PRN (12:47)
[2023-01-20] MEDS ORDERED: NICOTINE 10 MG CARTRIDGE (INHALER) IH PRN (12:47)
[2023-01-20] MEDS ORDERED: BISMUTH SUBSALICYLATE 262 MG/15 ML BTL PO PRN (12:47)
[2023-01-20] MEDS ORDERED: BUPRENORPHINE HCL 150 MCG, BUPRENORPHINE HCL 75 MCG BC PRN (12:47)
[2023-01-20] MEDS ORDERED: NALOXONE HCL (KLOXXADO) 8 MG SPRAY NS PRN (12:47)
[2023-01-20] MEDS ORDERED: ACETAMINOPHEN 325 MG TABLET (FP) PO PRN ×2 (12:47)
[2023-01-20] MEDS ORDERED: LOPERAMIDE HCL 2 MG CAPSULE PO PRN (12:47)
[2023-01-20] MEDS ORDERED: BUPRENORPHINE HCL 150 MCG FILM BC ONE (13:05)
[2023-01-20] MEDS ORDERED: BUPRENORPHINE HCL 75 MCG FILM BC ONE (13:06)
[2023-01-20] MEDS ORDERED: cloNIDine HCL 0.1 MG TABLET ONE (14:00)
[2023-01-20] MEDS: PRENATAL VITAMINS W/ FOLIC ACID TABLET (FP) PO SCH (14:04)
[2023-01-20] MEDS ORDERED: PRENATAL VITAMINS W/ FOLIC ACID TABLET (FP) PO ONE (14:04)
[2023-01-20 16:16] LABS: HEMATOCRIT 38.8 % (35.4-49); HEMOGLOBIN 12.9 GM/dL (11.7-16.9); MCH 26.4 pg (25.7-33.7); MCHC 33.2 g/dl (32.0-35.9); MEAN CELL VOLUME 79.6 fl (80-96); MEAN PLT VOLUME 7.8 fl (7.5-11.1); PLATELET COUNT 266 10^3/uL (134-434); RBC 4.87 M/mm3 (4.00-5.60); RDW 13.3 % (11.9-15.9); WHITE BLOOD COUNT 4.2 K/mm3 (4.0-10.0)
[2023-01-20 16:19] LABS: BLOOD UREA NITROGEN 12.1 mg/dL (7-18); CALCIUM 8.4 mg/dL (8.5-10.1)
[2023-01-20 16:20] LABS: ALBUMIN 3.1 g/dl (3.4-5.0)
[2023-01-20 16:23] LABS: CREATININE 0.7 mg/dL (0.55-1.3)
[2023-01-20 16:25] LABS: BILIRUBIN,TOTAL 0.4 mg/dL (0.2-1)
[2023-01-20] MEDS: diazePAM 5 MG TABLET PO PRN (19:00)
[2023-01-20] MEDS: cloNIDine HCL 0.1 MG TABLET PO PRN (19:01)
[2023-01-20] MEDS: METHOCARBAMOL 500 MG TABLET PO PRN (19:01)
[2023-01-20] MEDS: MELATONIN 5 MG TABLETS PO SCH (22:49)
[2023-01-20] MEDS: THIAMINE HCL 100 MG TABLET (FP) PO SCH (22:49)
[2023-01-21] MEDS ORDERED: BUPRENORPHINE HCL 150 MCG, BUPRENORPHINE HCL 75 MCG BC PRN
[2023-01-21] MEDS: BUPRENORPHINE HCL 150 MCG, BUPRENORPHINE HCL 75 MCG BC SCH ×2 (06:18→17:25)
[2023-01-21] MEDS: PRENATAL VITAMINS W/ FOLIC ACID TABLET (FP) PO SCH (10:46)
[2023-01-21] MEDS: diazePAM 5 MG TABLET PO PRN ×2 (10:48→22:46)
[2023-01-21] MEDS: cloNIDine HCL 0.1 MG TABLET PO PRN (17:50)
[2023-01-21] MEDS: METHOCARBAMOL 500 MG TABLET PO PRN (22:46)
[2023-01-21] MEDS: THIAMINE HCL 100 MG TABLET (FP) PO SCH (22:46)
[2023-01-21] MEDS: MELATONIN 5 MG TABLETS PO SCH (22:46)
[2023-01-22] MEDS: BUPRENORPHINE HCL 450 MCG FILM BC SCH ×2 (06:17→17:23)
[2023-01-22] MEDS: PRENATAL VITAMINS W/ FOLIC ACID TABLET (FP) PO SCH (10:37)
[2023-01-22] MEDS: diazePAM 5 MG TABLET PO PRN ×3 (10:37→22:37)
[2023-01-22] MEDS: METHOCARBAMOL 500 MG TABLET PO PRN (17:23)
[2023-01-22] MEDS: cloNIDine HCL 0.1 MG TABLET PO PRN (17:23)
[2023-01-22] MEDS: THIAMINE HCL 100 MG TABLET (FP) PO SCH (22:34)
[2023-01-22] MEDS: MELATONIN 5 MG TABLETS PO SCH (22:34)
[2023-01-22] MEDS: IBUPROFEN 600 MG TABLET (FP) PO PRN (22:36)
[2023-01-22] MEDS: hydrOXYzine PAMOATE 25 MG CAPSULE (FP) PO PRN (22:37)
[2023-01-23] MEDS: BUPRENORPHINE/NALOXONE 4 MG/1 MG FILM PACKET SL SCH ×2 (06:04→18:02)
[2023-01-23] MEDS: PRENATAL VITAMINS W/ FOLIC ACID TABLET (FP) PO SCH (10:43)
[2023-01-23] MEDS: IBUPROFEN 600 MG TABLET (FP) PO PRN (10:45)
[2023-01-23] MEDS: hydrOXYzine PAMOATE 25 MG CAPSULE (FP) PO PRN (10:46)
[2023-01-23] MEDS: diazePAM 5 MG TABLET PO PRN ×3 (10:47→22:52)
[2023-01-23] MEDS: METHOCARBAMOL 500 MG TABLET PO PRN ×2 (18:13→22:52)
[2023-01-23] MEDS: MELATONIN 5 MG TABLETS PO SCH (22:51)
[2023-01-23] MEDS: THIAMINE HCL 100 MG TABLET (FP) PO SCH (22:51)
[2023-01-24] MEDS ORDERED: BUPRENORPHINE/NALOXONE 8 MG/2 MG FILM PACKET SL ONE (06:00)
[2023-01-24] MEDS: PRENATAL VITAMINS W/ FOLIC ACID TABLET (FP) PO SCH (10:53)
[2023-01-24] MEDS: IBUPROFEN 600 MG TABLET (FP) PO PRN (10:56)
[2023-01-24] MEDS: hydrOXYzine PAMOATE 25 MG CAPSULE (FP) PO PRN ×2 (10:56→21:23)
[2023-01-24] MEDS ORDERED: cloNIDine HCL 0.1 MG TABLET PO PRN (15:47)
[2023-01-24] MEDS: METHOCARBAMOL 500 MG TABLET PO PRN (21:23)
[2023-01-24] MEDS: MELATONIN 5 MG TABLETS PO SCH (21:23)
[2023-01-24] MEDS: THIAMINE HCL 100 MG TABLET (FP) PO SCH (21:24)
[2023-01-25 10:41] LABS: CREATININE 0.7 mg/dL (0.55-1.3)
[2023-01-25 10:42] LABS: BILIRUBIN,TOTAL 0.3 mg/dL (0.2-1); TOT PROT 8.9 g/dl (6.4-8.2)
[2023-01-25] MEDS: PRENATAL VITAMINS W/ FOLIC ACID TABLET (FP) PO SCH (10:55)
[2023-01-25] MEDS ORDERED: BUPRENORPHINE/NALOXONE 8 MG/2 MG FILM PACKET SL ONE (12:05)
[2023-01-25 13:02] VITALS: BP 118/90; PULSE 106; RESP 17; TEMP 98.2
== END 2023-01-25 13:14 | disposition other institution (70) | DRG 773 ==
LOC: YASAS 10:59 → Y3N 13:16
PROVIDERS: ADMIT Allergy & Immunology; ATTEND Surgery
PROC: HZ2ZZZZ Detoxification Services for Substance Abuse Treatment (ICD-10-PCS; principal; 2023-01-20)
DX: F11.23 Opioid dependence with withdrawal (principal); F14.20 Cocaine dependence, uncomplicated; F17.210 Nicotine dependence, cigarettes, uncomplicated; F31.9 Bipolar disorder, unspecified; F25.0 Schizoaffective disorder, bipolar type; F19.24 Other psychoactive substance dependence with psychoactive substance-induced mood disorder; B20 Human immunodeficiency virus [HIV] disease; E87.1 Hypo-osmolality and hyponatremia; B18.2 Chronic viral hepatitis C; M54.50 Low back pain, unspecified; G89.29 Other chronic pain; R74.01 Elevation of levels of liver transaminase levels; R30.0 Dysuria; Z91.14 Patient's other noncompliance with medication regimen
CPT/HCPCS: 36415; 80053; 85027; 86780; 87086; 87811; C9803-CS; U0003; U0005

== ENCOUNTER 2023-01-25 13:14 | Inpatient (IN) | payer OTHER ==
[2023-01-25] MEDS ORDERED: POLYETHYLENE GLYCOL (HEALTHYLAX) 3350 17 GM PACKET PO PRN (15:04)
[2023-01-25] MEDS ORDERED: IBUPROFEN 400 MG TABLET (FP) PO PRN (15:04)
[2023-01-25] MEDS ORDERED: MAGNESIUM HYDROX 2400MG/30ML ORAL SUSPENSION 30 ML CUP PO PRN (15:04)
[2023-01-25] MEDS ORDERED: ACETAMINOPHEN 325 MG TABLET (FP) PO PRN (15:04)
[2023-01-25] MEDS ORDERED: MAG HYDROX/AL HYDROX/SIMETH 30 ML UNIT-DOSE CUP PO PRN (15:04)
[2023-01-25] MEDS ORDERED: LOPERAMIDE HCL 2 MG CAPSULE PO PRN (15:04)
[2023-01-25] MEDS ORDERED: BENZOCAINE/MENTHOL (CHLORASEPTIC ) LOZENGE MM PRN (15:04)
[2023-01-25] MEDS ORDERED: NALOXONE HCL (KLOXXADO) 8 MG SPRAY NS PRN (15:04)
[2023-01-25] MEDS ORDERED: IBUPROFEN 600 MG TABLET (FP) PO PRN (15:04)
[2023-01-25] MEDS ORDERED: BENZONATATE 200 MG CAPSULE PO PRN (15:04)
[2023-01-25] MEDS ORDERED: guaiFENesin 600 MG TABLET.ER (FP) PO PRN (15:04)
[2023-01-25] MEDS ORDERED: NALOXONE HCL 0.4 MG/ML VIAL IVPUSH PRN (15:04)
[2023-01-25] MEDS ORDERED: METHYLNALTREXONE BROMIDE (RELISTOR) 150 MG TABLET PO PRN (15:04)
[2023-01-25] MEDS: BUPRENORPHINE/NALOXONE 8 MG/2 MG FILM PACKET SL SCH (18:24)
[2023-01-25] MEDS: THIAMINE HCL 100 MG TABLET (FP) PO SCH (21:34)
[2023-01-25] MEDS: MELATONIN 5 MG TABLETS PO SCH (21:34)
[2023-01-26] MEDS: BUPRENORPHINE/NALOXONE 8 MG/2 MG FILM PACKET SL SCH ×2 (06:29→17:05)
[2023-01-26] MEDS: PRENATAL VITAMINS W/ FOLIC ACID TABLET (FP) PO SCH (09:56)
[2023-01-26] MEDS: NICOTINE 10 MG CARTRIDGE (INHALER) IH PRN (09:57)
[2023-01-26] MEDS: hydrOXYzine PAMOATE 25 MG CAPSULE (FP) PO PRN (09:57)
[2023-01-26] MEDS: AMOX TR/POT CLAV 875MG/125MG TABLETS (FP) PO SCH (17:03)
[2023-01-26 20:56] LABS: HIV INTERPRETATION PRESUMPTIVE POSITIVE (NEGATIVE)
[2023-01-26] MEDS: MELATONIN 5 MG TABLETS PO SCH (21:14)
[2023-01-26] MEDS: THIAMINE HCL 100 MG TABLET (FP) PO SCH (21:14)
[2023-01-26] MEDS: TOLNAFTATE 1% CREAM 15 GM TUBE TP SCH (21:15)
[2023-01-27] MEDS: BUPRENORPHINE/NALOXONE 8 MG/2 MG FILM PACKET SL SCH ×2 (06:16→17:31)
[2023-01-27] MEDS: AMOX TR/POT CLAV 875MG/125MG TABLETS (FP) PO SCH ×2 (07:14→17:31)
[2023-01-27] MEDS: PRENATAL VITAMINS W/ FOLIC ACID TABLET (FP) PO SCH (10:24)
[2023-01-27] MEDS: TOLNAFTATE 1% CREAM 15 GM TUBE TP SCH ×2 (10:24→21:28)
[2023-01-27] MEDS: NICOTINE 10 MG CARTRIDGE (INHALER) IH PRN (10:25)
[2023-01-27] MEDS: MELATONIN 5 MG TABLETS PO SCH (21:27)
[2023-01-27] MEDS: THIAMINE HCL 100 MG TABLET (FP) PO SCH (21:27)
[2023-01-27] MEDS: hydrOXYzine PAMOATE 25 MG CAPSULE (FP) PO PRN (21:28)
[2023-01-28] MEDS: BUPRENORPHINE/NALOXONE 8 MG/2 MG FILM PACKET SL SCH ×2 (06:28→18:20)
[2023-01-28] MEDS: AMOX TR/POT CLAV 875MG/125MG TABLETS (FP) PO SCH ×2 (07:29→18:20)
[2023-01-28] MEDS: PRENATAL VITAMINS W/ FOLIC ACID TABLET (FP) PO SCH (09:44)
[2023-01-28] MEDS: TOLNAFTATE 1% CREAM 15 GM TUBE TP SCH ×2 (09:44→21:39)
[2023-01-28] MEDS ORDERED: DOCUSATE SODIUM 100 MG CAPSULE (FP) PO PRN (09:45)
[2023-01-28] MEDS: NICOTINE 10 MG CARTRIDGE (INHALER) IH PRN (09:45)
[2023-01-28] MEDS ORDERED: HYDROCORTISONE 2.5% TOPICAL CREAM 30 GM TUBE RC PRN (09:51)
[2023-01-28] MEDS: LACTULOSE 20 GM/30 ML UDC (FOR ORAL USE ONLY) PO SCH ×2 (13:37→21:38)
[2023-01-28] MEDS: THIAMINE HCL 100 MG TABLET (FP) PO SCH (21:38)
[2023-01-28] MEDS: MELATONIN 5 MG TABLETS PO SCH (21:38)
[2023-01-28] MEDS: SUVOREXANT 10 MG TABLET PO PRN (21:39)
[2023-01-29] MEDS: LACTULOSE 20 GM/30 ML UDC (FOR ORAL USE ONLY) PO SCH ×3 (06:27→21:12)
[2023-01-29] MEDS: BUPRENORPHINE/NALOXONE 8 MG/2 MG FILM PACKET SL SCH ×2 (06:28→17:30)
[2023-01-29] MEDS: AMOX TR/POT CLAV 875MG/125MG TABLETS (FP) PO SCH ×2 (07:03→17:29)
[2023-01-29] MEDS: PRENATAL VITAMINS W/ FOLIC ACID TABLET (FP) PO SCH (10:23)
[2023-01-29] MEDS: TOLNAFTATE 1% CREAM 15 GM TUBE TP SCH ×2 (10:24→21:14)
[2023-01-29] MEDS: THIAMINE HCL 100 MG TABLET (FP) PO SCH (21:13)
[2023-01-29] MEDS: MELATONIN 5 MG TABLETS PO SCH (21:13)
[2023-01-29] MEDS: SUVOREXANT 10 MG TABLET PO PRN (21:14)
[2023-01-30] MEDS: LACTULOSE 20 GM/30 ML UDC (FOR ORAL USE ONLY) PO SCH ×3 (06:28→21:36)
[2023-01-30] MEDS: BUPRENORPHINE/NALOXONE 8 MG/2 MG FILM PACKET SL SCH ×2 (06:28→17:38)
[2023-01-30] MEDS: AMOX TR/POT CLAV 875MG/125MG TABLETS (FP) PO SCH ×2 (07:11→17:38)
[2023-01-30] MEDS: PRENATAL VITAMINS W/ FOLIC ACID TABLET (FP) PO SCH (10:30)
[2023-01-30] MEDS: TOLNAFTATE 1% CREAM 15 GM TUBE TP SCH ×2 (10:31→21:38)
[2023-01-30] MEDS: THIAMINE HCL 100 MG TABLET (FP) PO SCH (21:36)
[2023-01-30] MEDS: MELATONIN 5 MG TABLETS PO SCH (21:36)
[2023-01-30] MEDS: SUVOREXANT 10 MG TABLET PO PRN (21:37)
[2023-01-30] MEDS ORDERED: SUVOREXANT 10 MG TABLET PO PRN (22:00)
[2023-01-31] MEDS: LACTULOSE 20 GM/30 ML UDC (FOR ORAL USE ONLY) PO SCH ×3 (06:49→21:34)
[2023-01-31] MEDS: BUPRENORPHINE/NALOXONE 8 MG/2 MG FILM PACKET SL SCH ×2 (06:49→17:17)
[2023-01-31] MEDS: AMOX TR/POT CLAV 875MG/125MG TABLETS (FP) PO SCH ×2 (07:02→17:17)
[2023-01-31] MEDS: PRENATAL VITAMINS W/ FOLIC ACID TABLET (FP) PO SCH (10:45)
[2023-01-31] MEDS: TOLNAFTATE 1% CREAM 15 GM TUBE TP SCH ×2 (10:45→21:34)
[2023-01-31] MEDS: THIAMINE HCL 100 MG TABLET (FP) PO SCH (21:33)
[2023-01-31] MEDS: SUVOREXANT 10 MG TABLET PO PRN (21:34)
[2023-01-31] MEDS: MELATONIN 5 MG TABLETS PO SCH (21:34)
[2023-02-01] MEDS: LACTULOSE 20 GM/30 ML UDC (FOR ORAL USE ONLY) PO SCH ×3 (06:30→21:55)
[2023-02-01] MEDS: BUPRENORPHINE/NALOXONE 8 MG/2 MG FILM PACKET SL SCH ×2 (06:31→17:15)
[2023-02-01] MEDS: AMOX TR/POT CLAV 875MG/125MG TABLETS (FP) PO SCH ×2 (07:09→17:15)
[2023-02-01] MEDS: TOLNAFTATE 1% CREAM 15 GM TUBE TP SCH ×2 (10:31→21:55)
[2023-02-01] MEDS: PRENATAL VITAMINS W/ FOLIC ACID TABLET (FP) PO SCH (10:31)
[2023-02-01] MEDS ORDERED: TUBERCULIN PPD 5 TU/0.1ML VIAL ID ONE (12:11)
[2023-02-01] MEDS: SUVOREXANT 10 MG TABLET PO PRN (21:54)
[2023-02-01] MEDS: THIAMINE HCL 100 MG TABLET (FP) PO SCH (21:54)
[2023-02-01] MEDS: MELATONIN 5 MG TABLETS PO SCH (21:55)
[2023-02-01] MEDS: BUPRENORPHINE/NALOXONE 4 MG/1 MG FILM PACKET SL SCH (21:55)
[2023-02-02] MEDS: LACTULOSE 20 GM/30 ML UDC (FOR ORAL USE ONLY) PO SCH ×3 (06:28→21:33)
[2023-02-02] MEDS: BUPRENORPHINE/NALOXONE 8 MG/2 MG FILM PACKET SL SCH ×2 (06:29→18:40)
[2023-02-02] MEDS: AMOX TR/POT CLAV 875MG/125MG TABLETS (FP) PO SCH ×2 (07:07→18:30)
[2023-02-02] MEDS: TOLNAFTATE 1% CREAM 15 GM TUBE TP SCH ×2 (10:51→21:35)
[2023-02-02] MEDS: PRENATAL VITAMINS W/ FOLIC ACID TABLET (FP) PO SCH (10:51)
[2023-02-02] MEDS: THIAMINE HCL 100 MG TABLET (FP) PO SCH (21:32)
[2023-02-02] MEDS: MELATONIN 5 MG TABLETS PO SCH (21:33)
[2023-02-02] MEDS: BUPRENORPHINE/NALOXONE 4 MG/1 MG FILM PACKET SL SCH (21:34)
[2023-02-02] MEDS: hydrOXYzine PAMOATE 25 MG CAPSULE (FP) PO PRN (21:34)
[2023-02-02] MEDS: SUVOREXANT 10 MG TABLET PO PRN (21:35)
[2023-02-02] MEDS: NICOTINE 10 MG CARTRIDGE (INHALER) IH PRN (21:35)
[2023-02-02] MEDS ORDERED: SUVOREXANT 10 MG TABLET PO PRN (22:00)
[2023-02-03] MEDS: BUPRENORPHINE/NALOXONE 8 MG/2 MG FILM PACKET SL SCH ×2 (06:16→18:16)
[2023-02-03] MEDS: LACTULOSE 20 GM/30 ML UDC (FOR ORAL USE ONLY) PO SCH ×3 (06:16→21:13)
[2023-02-03] MEDS: AMOX TR/POT CLAV 875MG/125MG TABLETS (FP) PO SCH ×2 (07:06→18:16)
[2023-02-03] MEDS: PRENATAL VITAMINS W/ FOLIC ACID TABLET (FP) PO SCH (10:37)
[2023-02-03] MEDS: TOLNAFTATE 1% CREAM 15 GM TUBE TP SCH ×2 (10:37→21:16)
[2023-02-03 14:58] LABS: BASO % 0.8 % (0-2.0); EOS % 1.8 % (0-4.5); HEMATOCRIT 40.8 % (35.4-49); HEMOGLOBIN 13.4 GM/dL (11.7-16.9); LYMPH % 42.7 % (8-40); MCH 26.7 pg (25.7-33.7); MCHC 32.8 g/dl (32.0-35.9); MEAN CELL VOLUME 81.5 fl (80-96); MEAN PLT VOLUME 8.6 fl (7.5-11.1); MONO % 14.9 % (3.8-10.2); NEUT % 39.8 % (42.8-82.8); PLATELET COUNT 218 10^3/uL (134-434); RDW 13.6 % (11.9-15.9); WHITE BLOOD COUNT 3.9 K/mm3 (4.0-10.0)
[2023-02-03 15:08] LABS: CREATININE 0.7 mg/dL (0.55-1.3)
[2023-02-03 15:10] LABS: ALBUMIN 3.1 g/dl (3.4-5.0); BILIRUBIN,TOTAL 0.7 mg/dL (0.2-1); CALCIUM 8.6 mg/dL (8.5-10.1); TOT PROT 8.9 g/dl (6.4-8.2)
[2023-02-03] MEDS: THIAMINE HCL 100 MG TABLET (FP) PO SCH (21:13)
[2023-02-03] MEDS: MELATONIN 5 MG TABLETS PO SCH (21:13)
[2023-02-03] MEDS: SUVOREXANT 10 MG TABLET PO PRN (21:14)
[2023-02-03] MEDS: hydrOXYzine PAMOATE 25 MG CAPSULE (FP) PO PRN (21:15)
[2023-02-03] MEDS: BUPRENORPHINE/NALOXONE 4 MG/1 MG FILM PACKET SL SCH (21:16)
[2023-02-04] MEDS: LACTULOSE 20 GM/30 ML UDC (FOR ORAL USE ONLY) PO SCH ×3 (06:26→21:15)
[2023-02-04] MEDS: BUPRENORPHINE/NALOXONE 8 MG/2 MG FILM PACKET SL SCH ×2 (06:27→17:19)
[2023-02-04] MEDS: AMOX TR/POT CLAV 875MG/125MG TABLETS (FP) PO SCH ×2 (07:03→17:17)
[2023-02-04] MEDS: PRENATAL VITAMINS W/ FOLIC ACID TABLET (FP) PO SCH (09:44)
[2023-02-04] MEDS: TOLNAFTATE 1% CREAM 15 GM TUBE TP SCH ×2 (09:44→21:16)
[2023-02-04] MEDS: POVIDONE-IODINE 10% SOLN 118 ML BOTTLE TP SCH (11:43)
[2023-02-04] MEDS: MELATONIN 5 MG TABLETS PO SCH (21:15)
[2023-02-04] MEDS: THIAMINE HCL 100 MG TABLET (FP) PO SCH (21:15)
[2023-02-04] MEDS: BUPRENORPHINE/NALOXONE 4 MG/1 MG FILM PACKET SL SCH (21:16)
[2023-02-04] MEDS: SUVOREXANT 10 MG TABLET PO PRN (21:16)
[2023-02-05] MEDS: LACTULOSE 20 GM/30 ML UDC (FOR ORAL USE ONLY) PO SCH ×3 (06:14→21:28)
[2023-02-05] MEDS: BUPRENORPHINE/NALOXONE 8 MG/2 MG FILM PACKET SL SCH ×2 (06:15→17:11)
[2023-02-05] MEDS: AMOX TR/POT CLAV 875MG/125MG TABLETS (FP) PO SCH ×2 (07:07→17:10)
[2023-02-05] MEDS: PRENATAL VITAMINS W/ FOLIC ACID TABLET (FP) PO SCH (10:15)
[2023-02-05] MEDS: POVIDONE-IODINE 10% SOLN 118 ML BOTTLE TP SCH (10:16)
[2023-02-05] MEDS: TOLNAFTATE 1% CREAM 15 GM TUBE TP SCH ×2 (10:19→21:31)
[2023-02-05 11:08] LABS: ALBUMIN 2.8 g/dl (3.4-5.0); BLOOD UREA NITROGEN 13.2 mg/dL (7-18); CALCIUM 8.9 mg/dL (8.5-10.1)
[2023-02-05 11:12] LABS: CREATININE 0.6 mg/dL (0.55-1.3)
[2023-02-05 11:14] LABS: BILIRUBIN,TOTAL 0.5 mg/dL (0.2-1); TOT PROT 8.5 g/dl (6.4-8.2)
[2023-02-05] MEDS: THIAMINE HCL 100 MG TABLET (FP) PO SCH (21:28)
[2023-02-05] MEDS: MELATONIN 5 MG TABLETS PO SCH (21:28)
[2023-02-05] MEDS: SUVOREXANT 10 MG TABLET PO PRN (21:30)
[2023-02-05] MEDS: BUPRENORPHINE/NALOXONE 4 MG/1 MG FILM PACKET SL SCH (21:30)
[2023-02-06] MEDS: LACTULOSE 20 GM/30 ML UDC (FOR ORAL USE ONLY) PO SCH ×3 (06:42→21:48)
[2023-02-06] MEDS: BUPRENORPHINE/NALOXONE 8 MG/2 MG FILM PACKET SL SCH ×2 (06:43→18:35)
[2023-02-06] MEDS: POVIDONE-IODINE 10% SOLN 118 ML BOTTLE TP SCH (10:11)
[2023-02-06] MEDS: PRENATAL VITAMINS W/ FOLIC ACID TABLET (FP) PO SCH (10:11)
[2023-02-06] MEDS: TOLNAFTATE 1% CREAM 15 GM TUBE TP SCH ×2 (10:11→23:08)
[2023-02-06] MEDS: BUPRENORPHINE/NALOXONE 4 MG/1 MG FILM PACKET SL SCH (21:48)
[2023-02-06] MEDS: THIAMINE HCL 100 MG TABLET (FP) PO SCH (21:48)
[2023-02-06] MEDS: MELATONIN 5 MG TABLETS PO SCH (21:48)
[2023-02-06] MEDS: SUVOREXANT 10 MG TABLET PO PRN (21:49)
[2023-02-07] MEDS: BUPRENORPHINE/NALOXONE 8 MG/2 MG FILM PACKET SL SCH ×2 (06:24→18:13)
[2023-02-07] MEDS: LACTULOSE 20 GM/30 ML UDC (FOR ORAL USE ONLY) PO SCH ×3 (06:24→21:42)
[2023-02-07] MEDS: TOLNAFTATE 1% CREAM 15 GM TUBE TP SCH ×2 (10:15→21:42)
[2023-02-07] MEDS: PRENATAL VITAMINS W/ FOLIC ACID TABLET (FP) PO SCH (10:15)
[2023-02-07] MEDS: POVIDONE-IODINE 10% SOLN 118 ML BOTTLE TP SCH (10:15)
[2023-02-07] MEDS: NICOTINE 10 MG CARTRIDGE (INHALER) IH PRN (13:14)
[2023-02-07] MEDS: SUVOREXANT 10 MG TABLET PO PRN (21:42)
[2023-02-07] MEDS: THIAMINE HCL 100 MG TABLET (FP) PO SCH (21:42)
[2023-02-07] MEDS: BUPRENORPHINE/NALOXONE 4 MG/1 MG FILM PACKET SL SCH (21:42)
[2023-02-07] MEDS: MELATONIN 5 MG TABLETS PO SCH (21:45)
[2023-02-08] MEDS: LACTULOSE 20 GM/30 ML UDC (FOR ORAL USE ONLY) PO SCH ×3 (06:18→21:37)
[2023-02-08] MEDS: BUPRENORPHINE/NALOXONE 8 MG/2 MG FILM PACKET SL SCH (06:19)
[2023-02-08] MEDS: TOLNAFTATE 1% CREAM 15 GM TUBE TP SCH ×2 (10:15→21:37)
[2023-02-08] MEDS: PRENATAL VITAMINS W/ FOLIC ACID TABLET (FP) PO SCH (10:15)
[2023-02-08] MEDS: POVIDONE-IODINE 10% SOLN 118 ML BOTTLE TP SCH (10:15)
[2023-02-08] MEDS ORDERED: BUPRENORPHINE/NALOXONE 8 MG/2 MG FILM PACKET SL ONE (19:25)
[2023-02-08] MEDS: THIAMINE HCL 100 MG TABLET (FP) PO SCH (21:37)
[2023-02-08] MEDS ORDERED: SUVOREXANT 10 MG TABLET PO PRN (22:00)
[2023-02-09] MEDS: LACTULOSE 20 GM/30 ML UDC (FOR ORAL USE ONLY) PO SCH ×3 (06:27→21:37)
[2023-02-09] MEDS ORDERED: BUPRENORPHINE/NALOXONE 8 MG/2 MG FILM PACKET SL ONE (06:41)
[2023-02-09] MEDS: POVIDONE-IODINE 10% SOLN 118 ML BOTTLE TP SCH (11:16)
[2023-02-09] MEDS: PRENATAL VITAMINS W/ FOLIC ACID TABLET (FP) PO SCH (11:17)
[2023-02-09] MEDS: TOLNAFTATE 1% CREAM 15 GM TUBE TP SCH ×2 (11:17→21:39)
[2023-02-09] MEDS: BUPRENORPHINE/NALOXONE 8 MG/2 MG FILM PACKET SL SCH (18:28)
[2023-02-09] MEDS: THIAMINE HCL 100 MG TABLET (FP) PO SCH (21:37)
[2023-02-09] MEDS: QUEtiapine FUMARATE 50 MG TABLET PO PRN (21:39)
[2023-02-09] MEDS: BUPRENORPHINE/NALOXONE 4 MG/1 MG FILM PACKET SL SCH (21:46)
[2023-02-10] MEDS: LACTULOSE 20 GM/30 ML UDC (FOR ORAL USE ONLY) PO SCH ×3 (06:17→21:39)
[2023-02-10] MEDS: BUPRENORPHINE/NALOXONE 8 MG/2 MG FILM PACKET SL SCH ×2 (06:18→18:23)
[2023-02-10] MEDS: POVIDONE-IODINE 10% SOLN 118 ML BOTTLE TP SCH (10:58)
[2023-02-10] MEDS: PRENATAL VITAMINS W/ FOLIC ACID TABLET (FP) PO SCH (10:58)
[2023-02-10] MEDS: TOLNAFTATE 1% CREAM 15 GM TUBE TP SCH ×2 (10:58→21:41)
[2023-02-10 12:25] LABS: CALCIUM 8.9 mg/dL (8.5-10.1)
[2023-02-10 12:26] LABS: ALBUMIN 3.1 g/dl (3.4-5.0)
[2023-02-10 12:30] LABS: CREATININE 0.7 mg/dL (0.55-1.3)
[2023-02-10 12:31] LABS: BILIRUBIN,TOTAL 0.5 mg/dL (0.2-1); TOT PROT 9.1 g/dl (6.4-8.2)
[2023-02-10] MEDS: THIAMINE HCL 100 MG TABLET (FP) PO SCH (21:39)
[2023-02-10] MEDS: QUEtiapine FUMARATE 50 MG TABLET PO PRN (21:40)
[2023-02-10] MEDS: BUPRENORPHINE/NALOXONE 4 MG/1 MG FILM PACKET SL SCH (21:41)
[2023-02-11] MEDS: BUPRENORPHINE/NALOXONE 8 MG/2 MG FILM PACKET SL SCH ×2 (06:26→17:23)
[2023-02-11] MEDS: LACTULOSE 20 GM/30 ML UDC (FOR ORAL USE ONLY) PO SCH ×3 (06:26→21:13)
[2023-02-11] MEDS: POVIDONE-IODINE 10% SOLN 118 ML BOTTLE TP SCH (10:44)
[2023-02-11] MEDS: PRENATAL VITAMINS W/ FOLIC ACID TABLET (FP) PO SCH (10:44)
[2023-02-11] MEDS: TOLNAFTATE 1% CREAM 15 GM TUBE TP SCH ×2 (10:44→21:14)
[2023-02-11] MEDS: QUEtiapine FUMARATE 50 MG TABLET PO PRN (21:13)
[2023-02-11] MEDS: THIAMINE HCL 100 MG TABLET (FP) PO SCH (21:13)
[2023-02-11] MEDS: BUPRENORPHINE/NALOXONE 4 MG/1 MG FILM PACKET SL SCH (21:14)
[2023-02-12] MEDS: BUPRENORPHINE/NALOXONE 8 MG/2 MG FILM PACKET SL SCH ×2 (06:27→18:11)
[2023-02-12] MEDS: LACTULOSE 20 GM/30 ML UDC (FOR ORAL USE ONLY) PO SCH ×3 (06:27→21:24)
[2023-02-12] MEDS: POVIDONE-IODINE 10% SOLN 118 ML BOTTLE TP SCH (10:41)
[2023-02-12] MEDS: TOLNAFTATE 1% CREAM 15 GM TUBE TP SCH ×2 (10:41→21:25)
[2023-02-12] MEDS: PRENATAL VITAMINS W/ FOLIC ACID TABLET (FP) PO SCH (10:42)
[2023-02-12] MEDS: BUPRENORPHINE/NALOXONE 4 MG/1 MG FILM PACKET SL SCH (21:24)
[2023-02-12] MEDS: QUEtiapine FUMARATE 50 MG TABLET PO PRN (21:24)
[2023-02-12] MEDS: THIAMINE HCL 100 MG TABLET (FP) PO SCH (21:24)
[2023-02-13] MEDS: LACTULOSE 20 GM/30 ML UDC (FOR ORAL USE ONLY) PO SCH ×3 (06:13→21:23)
[2023-02-13] MEDS: BUPRENORPHINE/NALOXONE 8 MG/2 MG FILM PACKET SL SCH ×2 (06:14→18:27)
[2023-02-13] MEDS: TOLNAFTATE 1% CREAM 15 GM TUBE TP SCH ×2 (10:20→21:24)
[2023-02-13] MEDS: PRENATAL VITAMINS W/ FOLIC ACID TABLET (FP) PO SCH ×2 (10:20→10:31)
[2023-02-13] MEDS: POVIDONE-IODINE 10% SOLN 118 ML BOTTLE TP SCH (10:21)
[2023-02-13] MEDS: THIAMINE HCL 100 MG TABLET (FP) PO SCH (21:23)
[2023-02-13] MEDS: QUEtiapine FUMARATE 50 MG TABLET PO PRN (21:23)
[2023-02-13] MEDS: BUPRENORPHINE/NALOXONE 4 MG/1 MG FILM PACKET SL SCH (21:24)
[2023-02-14] MEDS: BUPRENORPHINE/NALOXONE 8 MG/2 MG FILM PACKET SL SCH ×2 (06:38→18:38)
[2023-02-14] MEDS: LACTULOSE 20 GM/30 ML UDC (FOR ORAL USE ONLY) PO SCH ×3 (06:38→21:18)
[2023-02-14] MEDS: POVIDONE-IODINE 10% SOLN 118 ML BOTTLE TP SCH (10:48)
[2023-02-14] MEDS: TOLNAFTATE 1% CREAM 15 GM TUBE TP SCH ×2 (10:48→21:20)
[2023-02-14] MEDS: PRENATAL VITAMINS W/ FOLIC ACID TABLET (FP) PO SCH (10:48)
[2023-02-14] MEDS: THIAMINE HCL 100 MG TABLET (FP) PO SCH (21:18)
[2023-02-14] MEDS: QUEtiapine FUMARATE 50 MG TABLET PO PRN (21:18)
[2023-02-14] MEDS: BUPRENORPHINE/NALOXONE 4 MG/1 MG FILM PACKET SL SCH (21:19)
[2023-02-15] MEDS: LACTULOSE 20 GM/30 ML UDC (FOR ORAL USE ONLY) PO SCH ×3 (06:24→21:51)
[2023-02-15] MEDS: BUPRENORPHINE/NALOXONE 8 MG/2 MG FILM PACKET SL SCH ×2 (06:24→18:03)
[2023-02-15 07:04] VITALS: RESP 18
[2023-02-15] MEDS: POVIDONE-IODINE 10% SOLN 118 ML BOTTLE TP SCH (11:07)
[2023-02-15] MEDS: PRENATAL VITAMINS W/ FOLIC ACID TABLET (FP) PO SCH (11:07)
[2023-02-15] MEDS: TOLNAFTATE 1% CREAM 15 GM TUBE TP SCH ×2 (11:07→21:53)
[2023-02-15] MEDS: THIAMINE HCL 100 MG TABLET (FP) PO SCH (21:51)
[2023-02-15] MEDS: BUPRENORPHINE/NALOXONE 4 MG/1 MG FILM PACKET SL SCH (21:51)
[2023-02-15] MEDS: QUEtiapine FUMARATE 50 MG TABLET PO PRN (21:53)
[2023-02-16] MEDS: BUPRENORPHINE/NALOXONE 8 MG/2 MG FILM PACKET SL SCH (06:32)
[2023-02-16] MEDS: LACTULOSE 20 GM/30 ML UDC (FOR ORAL USE ONLY) PO SCH (06:32)
[2023-02-16 07:07] VITALS: BP 120/75; PULSE 73; TEMP 97.3
[2023-02-16] MEDS: PRENATAL VITAMINS W/ FOLIC ACID TABLET (FP) PO SCH (10:31)
[2023-02-16] MEDS: TOLNAFTATE 1% CREAM 15 GM TUBE TP SCH (10:31)
[2023-02-16] MEDS: POVIDONE-IODINE 10% SOLN 118 ML BOTTLE TP SCH (10:31)
== END 2023-02-16 11:55 | disposition home or self-care (01) | DRG 772 ==
LOC: YASAS 13:14 → Y3W 13:15
PROVIDERS: ADMIT Allergy & Immunology; ATTEND Psychiatry & Neurology Pain Medicine
PROC: HZ42ZZZ Group Counseling for Substance Abuse Treatment, Cognitive-Behavioral (ICD-10-PCS; principal; 2023-01-25)
DX: F11.20 Opioid dependence, uncomplicated (principal); F14.20 Cocaine dependence, uncomplicated; F17.220 Nicotine dependence, chewing tobacco, uncomplicated; F25.9 Schizoaffective disorder, unspecified; F19.24 Other psychoactive substance dependence with psychoactive substance-induced mood disorder; B20 Human immunodeficiency virus [HIV] disease; Z79.899 Other long term (current) drug therapy; M54.50 Low back pain, unspecified; G89.29 Other chronic pain; B35.3 Tinea pedis; K62.5 Hemorrhage of anus and rectum; R79.89 Other specified abnormal findings of blood chemistry; Z86.19 Personal history of other infectious and parasitic diseases; Z91.148 Patient's other noncompliance with medication regimen for other reason
CPT/HCPCS: 36415; 80053; 82140; 85025; 87389; 87522

== ENCOUNTER 2023-06-17 13:09 | Inpatient (IN) | payer OTHER ==
[2023-06-17] MEDS ORDERED: BUPRENORPHINE HCL 2 MG TAB.SUBL SL ONE (15:32)
[2023-06-17] MEDS ORDERED: BUPRENORPHINE/NALOXONE 4 MG/1 MG FILM PACKET SL ONE (15:46)
[2023-06-17] MEDS ORDERED: BUPRENORPHINE/NALOXONE 2 MG/0.5 MG FILM PACKET ONE (16:18)
[2023-06-17 16:51] LABS: BASO % 0.4 % (0-2.0); EOS % 0.2 % (0-4.5); HEMATOCRIT 35.3 % (35.4-49); HEMOGLOBIN 11.8 GM/dL (11.7-16.9); LYMPH % 20.4 % (8-40); MCH 27.3 pg (25.7-33.7); MCHC 33.5 g/dl (32.0-35.9); MEAN CELL VOLUME 81.5 fl (80-96); MEAN PLT VOLUME 8.1 fl (7.5-11.1); MONO % 7.5 % (3.8-10.2); NEUT % 71.5 % (42.8-82.8); PLATELET COUNT 215 10^3/uL (134-434); RBC 4.33 M/mm3 (4.00-5.60); RDW 13.9 % (11.9-15.9); WHITE BLOOD COUNT 6.2 K/mm3 (4.0-10.0)
[2023-06-17 17:49] LABS: ALBUMIN 2.6 g/dl (3.4-5.0); BILIRUBIN,TOTAL 0.4 mg/dL (0.2-1); BLOOD UREA NITROGEN 12.2 mg/dL (7-18); CALCIUM 8.4 mg/dL (8.5-10.1); CREATININE 0.6 mg/dL (0.55-1.3); POTASSIUM 4.8 mmol/L (3.5-5.1); TOT PROT 8.2 g/dl (6.4-8.2)
[2023-06-17] MEDS ORDERED: methaDONE HCL 10 MG TABLET PO ONE (23:30)
[2023-06-18] MEDS: cloNIDine HCL 0.1 MG TABLET PO PRN (01:31)
[2023-06-18 10:21] LABS: HEMATOCRIT 42.4 % (35.4-49); MCH 27.1 pg (25.7-33.7); MEAN CELL VOLUME 82.1 fl (80-96); MEAN PLT VOLUME 8.2 fl (7.5-11.1); PLATELET COUNT 294 10^3/uL (134-434); RBC 5.16 M/mm3 (4.00-5.60); WHITE BLOOD COUNT 5.6 K/mm3 (4.0-10.0)
[2023-06-18 10:48] LABS: POTASSIUM 3.9 mmol/L (3.5-5.1)
[2023-06-18 10:53] LABS: ALBUMIN 2.6 g/dl (3.4-5.0); BLOOD UREA NITROGEN 13.8 mg/dL (7-18); CALCIUM 8.7 mg/dL (8.5-10.1)
[2023-06-18 10:54] LABS: MAGNESIUM 1.9 mg/dL (1.8-2.4)
[2023-06-18] MEDS: ENOXAPARIN NA (PORCINE) 40 MG/0.4 ML DISP.SYRIN SQ SCH (10:54)
[2023-06-18 10:56] LABS: PHOSPHOROUS 3.4 mg/dL (2.5-4.9)
[2023-06-18 10:58] LABS: BILIRUBIN,TOTAL 0.6 mg/dL (0.2-1); CREATININE 0.6 mg/dL (0.55-1.3); TOT PROT 8.6 g/dl (6.4-8.2)
[2023-06-18 12:41] VITALS: BMI 19.0
[2023-06-19] MEDS: ACETAMINOPHEN 325 MG TABLET (FP) PO PRN (02:46)
[2023-06-19] MEDS ORDERED: methaDONE HCL 10 MG TABLET PO ONE (09:30)
[2023-06-19] MEDS: ENOXAPARIN NA (PORCINE) 40 MG/0.4 ML DISP.SYRIN SQ SCH (09:37)
[2023-06-19] MEDS: cloNIDine HCL 0.1 MG TABLET PO PRN ×2 (10:19→22:06)
[2023-06-19 12:29] LABS: MCH 27.3 pg (25.7-33.7); MCHC 34.1 g/dl (32.0-35.9); MEAN CELL VOLUME 80.1 fl (80-96); MEAN PLT VOLUME 7.7 fl (7.5-11.1); PLATELET COUNT 343 10^3/uL (134-434); RBC 5.12 M/mm3 (4.00-5.60); WHITE BLOOD COUNT 13.7 K/mm3 (4.0-10.0)
[2023-06-19 12:50] LABS: POTASSIUM 4.1 mmol/L (3.5-5.1)
[2023-06-19 12:52] LABS: CALCIUM 8.6 mg/dL (8.5-10.1)
[2023-06-19 12:56] LABS: CREATININE 0.6 mg/dL (0.55-1.3)
[2023-06-19] MEDS ORDERED: MELATONIN 5 MG TABLETS PO ONE (20:39)
[2023-06-20] MEDS: ENOXAPARIN NA (PORCINE) 40 MG/0.4 ML DISP.SYRIN SQ SCH (09:15)
[2023-06-20 11:01] LABS: BASO % 0.7 % (0-2.0); EOS % 0.3 % (0-4.5); HEMATOCRIT 39.1 % (35.4-49); HEMOGLOBIN 12.8 GM/dL (11.7-16.9); LYMPH % 23.3 % (8-40); MCH 27.1 pg (25.7-33.7); MCHC 32.8 g/dl (32.0-35.9); MEAN CELL VOLUME 82.4 fl (80-96); MEAN PLT VOLUME 8.1 fl (7.5-11.1); MONO % 10.2 % (3.8-10.2); NEUT % 65.5 % (42.8-82.8); PLATELET COUNT 289 10^3/uL (134-434); RBC 4.74 M/mm3 (4.00-5.60); RDW 13.9 % (11.9-15.9); WHITE BLOOD COUNT 5.1 K/mm3 (4.0-10.0)
[2023-06-20 11:12] LABS: POTASSIUM 4.4 mmol/L (3.5-5.1)
[2023-06-20 11:13] LABS: CALCIUM 8.3 mg/dL (8.5-10.1)
[2023-06-20 11:15] LABS: ALBUMIN 2.5 g/dl (3.4-5.0); BLOOD UREA NITROGEN 13.9 mg/dL (7-18)
[2023-06-20 11:19] LABS: BILIRUBIN,TOTAL 0.4 mg/dL (0.2-1); TOT PROT 8.3 g/dl (6.4-8.2)
[2023-06-20 11:22] LABS: CREATININE 0.6 mg/dL (0.55-1.3)
[2023-06-20 20:28] VITALS: RESP 18
[2023-06-20] MEDS ORDERED: MELATONIN 5 MG TABLETS PO ONE (21:03)
[2023-06-20] MEDS: ACETAMINOPHEN 325 MG TABLET (FP) PO PRN (21:13)
[2023-06-21] MEDS ORDERED: methaDONE HCL 10 MG TABLET PO ONE (10:00)
[2023-06-21] MEDS: ENOXAPARIN NA (PORCINE) 40 MG/0.4 ML DISP.SYRIN SQ SCH (10:23)
[2023-06-21] MEDS: ACETAMINOPHEN 325 MG TABLET (FP) PO PRN (11:13)
[2023-06-21 11:16] VITALS: BP 118/86; PULSE 76; TEMP 97.5
== END 2023-06-21 15:37 | disposition other institution (70) | DRG 773 ==
LOC: JER 13:09 → JERBED 20:25 → J5S 23:31
PROVIDERS: ADMIT Internal Medicine
PROC: HZ2ZZZZ Detoxification Services for Substance Abuse Treatment (ICD-10-PCS; principal; 2023-06-17)
DX: F19.130 Other psychoactive substance abuse with withdrawal, uncomplicated (principal); F11.23 Opioid dependence with withdrawal; E78.5 Hyperlipidemia, unspecified; I10 Essential (primary) hypertension; R93.1 Abnormal findings on diagnostic imaging of heart and coronary circulation; B20 Human immunodeficiency virus [HIV] disease; R00.1 Bradycardia, unspecified; B19.20 Unspecified viral hepatitis C without hepatic coma; R01.1 Cardiac murmur, unspecified; F39 Unspecified mood [affective] disorder; Z86.79 Personal history of other diseases of the circulatory system
CPT/HCPCS: 36415; 71045-TC-FY; 76705-TC; 80048; 80053; 82105; 83036; 83735; 84100; 85025; 85027; 85651; 86140; 86359; 86360; 86431; 86611; 87040; 87536; 93005; 93010; 93306-TC; 99285-25

== ENCOUNTER 2023-06-21 16:16 | Inpatient (IN) | payer OTHER ==
[2023-06-21 20:05] VITALS: BMI 20.5
[2023-06-21] MEDS ORDERED: NALOXONE HCL 0.4 MG/ML VIAL IM PRN (22:24)
[2023-06-21] MEDS ORDERED: MAGNESIUM HYDROX 2400MG/30ML ORAL SUSPENSION 30 ML CUP PO PRN (22:24)
[2023-06-21] MEDS ORDERED: BENZONATATE 200 MG CAPSULE PO PRN (22:24)
[2023-06-21] MEDS ORDERED: BENZOCAINE/MENTHOL (CHLORASEPTIC ) LOZENGE MM PRN (22:24)
[2023-06-21] MEDS ORDERED: NICOTINE POLACRILEX 2 MG GUM BUC PRN (22:24)
[2023-06-21] MEDS ORDERED: LOPERAMIDE HCL 2 MG CAPSULE PO PRN (22:24)
[2023-06-21] MEDS ORDERED: guaiFENesin 600 MG TABLET.ER (FP) PO PRN (22:24)
[2023-06-21] MEDS ORDERED: IBUPROFEN 400 MG TABLET (FP) PO PRN (22:24)
[2023-06-21] MEDS ORDERED: COLLOIDAL OATMEAL 1 BAR EACH TP PRN (22:24)
[2023-06-21] MEDS ORDERED: NALOXONE HCL (KLOXXADO) 8 MG SPRAY NS PRN (22:24)
[2023-06-21] MEDS ORDERED: ACETAMINOPHEN 325 MG TABLET (FP) PO PRN (22:24)
[2023-06-21] MEDS ORDERED: IBUPROFEN 600 MG TABLET (FP) PO PRN (22:24)
[2023-06-21] MEDS ORDERED: MAG HYDROX/AL HYDROX/SIMETH 30 ML UNIT-DOSE CUP PO PRN (22:24)
[2023-06-21] MEDS ORDERED: POLYETHYLENE GLYCOL (HEALTHYLAX) 3350 17 GM PACKET PO PRN (22:24)
[2023-06-21] MEDS: MELATONIN 5 MG TABLETS PO SCH (23:14)
[2023-06-22] MEDS: hydrOXYzine PAMOATE 25 MG CAPSULE (FP) PO PRN (10:16)
[2023-06-22] MEDS: NICOTINE 21 MG/24 HOURS TOPICAL PATCH TD SCH (10:17)
[2023-06-22] MEDS: PRENATAL VITAMINS W/ FOLIC ACID TABLET (FP) PO SCH (10:17)
[2023-06-22 11:25] LABS: URINE APPEARANCE CLEAR; URINE BILIRUBIN NEGATIVE (NEGATIVE); URINE COLOR YELLOW; URINE GLUCOSE (UA) NEGATIVE (NEGATIVE); URINE KETONE NEGATIVE (NEGATIVE); URINE LEUK ESTERASE NEGATIVE (NEGATIVE); URINE NITRITE NEGATIVE (NEGATIVE); URINE PROTEIN NEGATIVE (NEGATIVE)
[2023-06-22 11:32] LABS: HEMATOCRIT 39.8 % (35.4-49); HEMOGLOBIN 13.1 GM/dL (11.7-16.9); MCH 27.1 pg (25.7-33.7); MCHC 32.9 g/dl (32.0-35.9); MEAN CELL VOLUME 82.3 fl (80-96); MEAN PLT VOLUME 8.1 fl (7.5-11.1); PLATELET COUNT 281 10^3/uL (134-434); RBC 4.83 M/mm3 (4.00-5.60); WHITE BLOOD COUNT 5.5 K/mm3 (4.0-10.0)
[2023-06-22 11:42] LABS: BILIRUBIN,TOTAL 0.4 mg/dL (0.2-1)
[2023-06-22 11:43] LABS: TOT PROT 8.7 g/dl (6.4-8.2)
[2023-06-22 11:44] LABS: CREATININE 0.7 mg/dL (0.55-1.3)
[2023-06-22 11:45] LABS: ALBUMIN 2.8 g/dl (3.4-5.0)
[2023-06-22 11:46] LABS: BLOOD UREA NITROGEN 14.2 mg/dL (7-18)
[2023-06-22] MEDS: MELATONIN 5 MG TABLETS PO SCH (22:22)
[2023-06-22] MEDS: THIAMINE HCL 100 MG TABLET (FP) PO SCH (22:22)
[2023-06-23] MEDS: QUEtiapine FUMARATE 50 MG TABLET PO PRN ×2 (00:04→21:28)
[2023-06-23] MEDS: hydrOXYzine PAMOATE 25 MG CAPSULE (FP) PO PRN ×2 (06:27→16:35)
[2023-06-23] MEDS: PRENATAL VITAMINS W/ FOLIC ACID TABLET (FP) PO SCH (10:07)
[2023-06-23] MEDS: NICOTINE 21 MG/24 HOURS TOPICAL PATCH TD SCH (10:07)
[2023-06-23] MEDS: AMMONIUM LACTATE 12% LOTION 225 GM BOTTLE TP PRN (12:58)
[2023-06-23] MEDS: MELATONIN 5 MG TABLETS PO SCH (21:27)
[2023-06-23] MEDS: THIAMINE HCL 100 MG TABLET (FP) PO SCH (21:27)
[2023-06-24 07:08] VITALS: TEMP 98.2
[2023-06-24] MEDS: NICOTINE 21 MG/24 HOURS TOPICAL PATCH TD SCH (10:09)
[2023-06-24] MEDS: PRENATAL VITAMINS W/ FOLIC ACID TABLET (FP) PO SCH (10:09)
[2023-06-24] MEDS: hydrOXYzine PAMOATE 25 MG CAPSULE (FP) PO PRN (10:09)
[2023-06-24] MEDS: AMMONIUM LACTATE 12% LOTION 225 GM BOTTLE TP PRN (10:28)
[2023-06-24] MEDS: BACITRACIN 0.9 GM PACKET TP SCH ×2 (11:42→21:14)
[2023-06-24] MEDS: THIAMINE HCL 100 MG TABLET (FP) PO SCH (21:14)
[2023-06-24] MEDS: QUEtiapine FUMARATE 50 MG TABLET PO PRN (21:14)
[2023-06-24] MEDS: MELATONIN 5 MG TABLETS PO SCH (21:14)
[2023-06-25 07:20] VITALS: BP 127/93; PULSE 101; RESP 17
[2023-06-25] MEDS: NICOTINE 21 MG/24 HOURS TOPICAL PATCH TD SCH (10:53)
[2023-06-25] MEDS: BACITRACIN 0.9 GM PACKET TP SCH (10:53)
[2023-06-25] MEDS: PRENATAL VITAMINS W/ FOLIC ACID TABLET (FP) PO SCH (10:53)
== END 2023-06-25 10:37 | disposition left against medical advice (07) | DRG 770 ==
LOC: YASAS 16:16 → Y3W 22:03
PROVIDERS: ADMIT Allergy & Immunology; ATTEND Allergy & Immunology
PROC: HZ42ZZZ Group Counseling for Substance Abuse Treatment, Cognitive-Behavioral (ICD-10-PCS; principal; 2023-06-21)
DX: F11.20 Opioid dependence, uncomplicated (principal); F14.20 Cocaine dependence, uncomplicated; F17.210 Nicotine dependence, cigarettes, uncomplicated; F25.0 Schizoaffective disorder, bipolar type; F19.282 Other psychoactive substance dependence with psychoactive substance-induced sleep disorder; B20 Human immunodeficiency virus [HIV] disease; B18.2 Chronic viral hepatitis C; R73.9 Hyperglycemia, unspecified; L85.3 Xerosis cutis; Z86.79 Personal history of other diseases of the circulatory system
CPT/HCPCS: 36415; 80053; 81003; 82962; 85027; 86780; 87635

== ENCOUNTER 2023-06-29 20:11 | Inpatient (IN) | payer OTHER ==
[2023-06-29 23:28] VITALS: BMI 17.9
[2023-06-29] MEDS ORDERED: DICYCLOMINE HCL 10 MG CAPSULE PO PRN (23:53)
[2023-06-29] MEDS ORDERED: ACETAMINOPHEN 325 MG TABLET (FP) PO PRN (23:53)
[2023-06-29] MEDS ORDERED: NALOXONE HCL 0.4 MG/ML VIAL IM PRN (23:53)
[2023-06-29] MEDS ORDERED: IBUPROFEN 400 MG TABLET (FP) PO PRN (23:53)
[2023-06-29] MEDS ORDERED: NICOTINE POLACRILEX 2 MG GUM BUC PRN (23:53)
[2023-06-29] MEDS ORDERED: LOPERAMIDE HCL 2 MG CAPSULE PO PRN (23:53)
[2023-06-29] MEDS ORDERED: ONDANSETRON *ODT* 4 MG TABLET SL PRN (23:53)
[2023-06-29] MEDS ORDERED: BENZONATATE 200 MG CAPSULE PO PRN (23:53)
[2023-06-29] MEDS ORDERED: BISMUTH SUBSALICYLATE 524 MG/30 ML PO PRN (23:53)
[2023-06-29] MEDS ORDERED: BENZOCAINE/MENTHOL (CHLORASEPTIC ) LOZENGE MM PRN (23:53)
[2023-06-29] MEDS ORDERED: MAGNESIUM HYDROX 2400MG/30ML ORAL SUSPENSION 30 ML CUP PO PRN (23:53)
[2023-06-29] MEDS ORDERED: NALOXONE HCL (KLOXXADO) 8 MG SPRAY NS PRN (23:53)
[2023-06-29] MEDS ORDERED: guaiFENesin 600 MG TABLET.ER (FP) PO PRN (23:53)
[2023-06-29] MEDS ORDERED: POLYETHYLENE GLYCOL (HEALTHYLAX) 3350 17 GM PACKET PO PRN (23:53)
[2023-06-29] MEDS ORDERED: MAG HYDROX/AL HYDROX/SIMETH 30 ML UNIT-DOSE CUP PO PRN (23:53)
[2023-06-29] MEDS ORDERED: cloNIDine HCL 0.1 MG TABLET PO PRN (23:58)
[2023-06-29] MEDS ORDERED: methaDONE HCL 10 MG TABLET (FOR DETOX USE ONLY) PO ONE (23:58)
[2023-06-30] MEDS: METHOCARBAMOL 500 MG TABLET PO PRN (05:11)
[2023-06-30] MEDS: hydrOXYzine PAMOATE 25 MG CAPSULE (FP) PO PRN (05:11)
[2023-06-30] MEDS: PRENATAL VITAMINS W/ FOLIC ACID TABLET (FP) PO SCH (10:44)
[2023-06-30] MEDS: NICOTINE 21 MG/24 HOURS TOPICAL PATCH TD SCH (10:44)
[2023-06-30 11:37] LABS: HEMATOCRIT 32.8 % (35.4-49); HEMOGLOBIN 10.9 GM/dL (11.7-16.9); MCH 27.4 pg (25.7-33.7); MCHC 33.3 g/dl (32.0-35.9); MEAN CELL VOLUME 82.5 fl (80-96); MEAN PLT VOLUME 8.2 fl (7.5-11.1); PLATELET COUNT 202 10^3/uL (134-434); RBC 3.98 M/mm3 (4.00-5.60); RDW 13.8 % (11.9-15.9); WHITE BLOOD COUNT 3.3 K/mm3 (4.0-10.0)
[2023-06-30 12:06] LABS: ALBUMIN 2.6 g/dl (3.4-5.0); BLOOD UREA NITROGEN 12.1 mg/dL (7-18); CALCIUM 7.9 mg/dL (8.5-10.1)
[2023-06-30 12:09] LABS: CREATININE 0.6 mg/dL (0.55-1.3)
[2023-06-30 12:10] LABS: BILIRUBIN,TOTAL 0.3 mg/dL (0.2-1); TOT PROT 7.7 g/dl (6.4-8.2)
[2023-06-30] MEDS: MELATONIN 5 MG TABLETS PO SCH (22:40)
[2023-06-30] MEDS: THIAMINE HCL 100 MG TABLET (FP) PO SCH (22:41)
[2023-07-01] MEDS ORDERED: methaDONE HCL 10 MG TABLET (FOR DETOX USE ONLY) PO ONE (10:00)
[2023-07-01] MEDS: PRENATAL VITAMINS W/ FOLIC ACID TABLET (FP) PO SCH (10:21)
[2023-07-01] MEDS: NICOTINE 21 MG/24 HOURS TOPICAL PATCH TD SCH (10:22)
[2023-07-01] MEDS ORDERED: POTASSIUM CHLORIDE ORAL LIQUID 20 MEQ/15 ML PO ONE (12:30)
[2023-07-01] MEDS: MELATONIN 5 MG TABLETS PO SCH (22:14)
[2023-07-01] MEDS: METHOCARBAMOL 500 MG TABLET PO PRN (22:14)
[2023-07-01] MEDS: hydrOXYzine PAMOATE 25 MG CAPSULE (FP) PO PRN (22:14)
[2023-07-01] MEDS: THIAMINE HCL 100 MG TABLET (FP) PO SCH (22:14)
[2023-07-02] MEDS: NICOTINE 21 MG/24 HOURS TOPICAL PATCH TD SCH (09:46)
[2023-07-02] MEDS: PRENATAL VITAMINS W/ FOLIC ACID TABLET (FP) PO SCH (09:47)
[2023-07-02] MEDS ORDERED: BACITRACIN ZINC 15 GM TUBE TOPICAL OINTMENT TP SCH (15:30)
[2023-07-02] MEDS: hydrOXYzine PAMOATE 25 MG CAPSULE (FP) PO PRN (15:50)
[2023-07-02] MEDS: METHOCARBAMOL 500 MG TABLET PO PRN ×2 (15:50→22:45)
[2023-07-02] MEDS: MELATONIN 5 MG TABLETS PO SCH (22:45)
[2023-07-02] MEDS: THIAMINE HCL 100 MG TABLET (FP) PO SCH (22:45)
[2023-07-03] MEDS ORDERED: methaDONE HCL 10 MG TABLET (FOR DETOX USE ONLY) PO ONE (10:00)
[2023-07-03] MEDS: BACITRACIN 0.9 GM PACKET TP SCH (10:03)
[2023-07-03] MEDS: NICOTINE 21 MG/24 HOURS TOPICAL PATCH TD SCH (10:05)
[2023-07-03] MEDS: PRENATAL VITAMINS W/ FOLIC ACID TABLET (FP) PO SCH (10:05)
[2023-07-03] MEDS ORDERED: SULFAMETHOXAZOLE/TRIMETHOPRIM 800MG/160MG D.S. TABLET PO SCH (11:30)
[2023-07-03] MEDS: SULFAMETHOXAZOLE/TRIMETHOPRIM 800MG/160MG D.S. TABLET PO SCH ×2 (14:24→22:07)
[2023-07-03] MEDS ORDERED: SODIUM CHLORIDE NASAL SPRAY 44 ML BOTTLE NS PRN (15:31)
[2023-07-03] MEDS: IBUPROFEN 600 MG TABLET (FP) PO PRN (17:44)
[2023-07-03] MEDS: METHOCARBAMOL 500 MG TABLET PO PRN ×2 (17:44→22:59)
[2023-07-03] MEDS: hydrOXYzine PAMOATE 25 MG CAPSULE (FP) PO PRN (17:44)
[2023-07-03 18:30] VITALS: RESP 18
[2023-07-03] MEDS: THIAMINE HCL 100 MG TABLET (FP) PO SCH (22:07)
[2023-07-03] MEDS: MELATONIN 5 MG TABLETS PO SCH (22:07)
[2023-07-04] MEDS ORDERED: hydrOXYzine PAMOATE 25 MG CAPSULE (FP) PO ONE (00:47)
[2023-07-04] MEDS: IBUPROFEN 600 MG TABLET (FP) PO PRN ×2 (02:35→10:24)
[2023-07-04] MEDS: NICOTINE 21 MG/24 HOURS TOPICAL PATCH TD SCH (10:21)
[2023-07-04] MEDS: PRENATAL VITAMINS W/ FOLIC ACID TABLET (FP) PO SCH (10:21)
[2023-07-04] MEDS: BACITRACIN 0.9 GM PACKET TP SCH (10:21)
[2023-07-04] MEDS: SULFAMETHOXAZOLE/TRIMETHOPRIM 800MG/160MG D.S. TABLET PO SCH (10:21)
[2023-07-04] MEDS: hydrOXYzine PAMOATE 25 MG CAPSULE (FP) PO PRN (10:22)
[2023-07-04] MEDS: METHOCARBAMOL 500 MG TABLET PO PRN (10:25)
[2023-07-04 13:50] VITALS: BP 143/89; PULSE 76; TEMP 98.1
== END 2023-07-04 14:40 | disposition home or self-care (01) | DRG 773 ==
LOC: YASAS 20:11 → Y3N 06-30 02:04
PROVIDERS: ADMIT Allergy & Immunology; ATTEND Surgery
PROC: HZ2ZZZZ Detoxification Services for Substance Abuse Treatment (ICD-10-PCS; principal; 2023-06-30)
DX: F11.23 Opioid dependence with withdrawal (principal); F14.20 Cocaine dependence, uncomplicated; F17.210 Nicotine dependence, cigarettes, uncomplicated; F25.9 Schizoaffective disorder, unspecified; B20 Human immunodeficiency virus [HIV] disease; D64.9 Anemia, unspecified; E87.6 Hypokalemia; L02.01 Cutaneous abscess of face; Z86.19 Personal history of other infectious and parasitic diseases; Z86.79 Personal history of other diseases of the circulatory system
CPT/HCPCS: 36415; 80053; 84132; 85027; 86780; 87635